=== PATIENT | female | born 1950 | race Caucasian/White ===

== ENCOUNTER → 2017-08-14 08:40 | Outpatient (CLI) | payer MEDICARE, MEDICAID, SELFPAY ==
--- NOTE | 2017-08-14 08:48 | HPBI_ITS ---
MAMMOGRAPHY - BILATERAL SCREENING REASON FOR EXAM: Female, 66 years old. Routine annual screening examination. PERTINENT HISTORY: Non-contributory. TECHNIQUE: Digital bilateral breast arianna (3D mammographic acquisition) in the CC and MLO projections. 2-D mediolateral oblique (MLO) and craniocaudad (CC) views of both breasts were obtained. CAD: Full Field Digital Mammography with Computer Added Detection was performed. COMPARISON: None. Baseline examination. FINDINGS: Breast Composition: There are scattered areas of fibroglandular density. There are no dominant masses or suspicious calcifications. There are 2 adjacent calcified nodules in the superior medial retroareolar region of the right breast. They measure 8 mm each. No other significant abnormalities are identified. HPBI/SCREENING MAMM (CAD), BILAT IMPRESSION: Negative screening mammogram. Yearly followup mammogram recommended. (A) ASSESSMENT CATEGORY: BIRADS Category 2: Benign. A letter regarding these results will be sent to the patient by the facility within 30 days. Approximately 10% of breast cancers are not detected by mammography. A normal mammogram should not delay biopsy of a clinically suspicious abnormality. [id number] Electronically Signed: Anoop aSmayoa MD at 10:38 EDT Tel [phone], Service support ,
== END ==
PROVIDERS: Family Provider Family Medicine; PCP Family Medicine; Visit Provider Family Medicine
DX: Z12.31 Encounter for screening mammogram for malignant neoplasm of breast (principal)
CPT/HCPCS: 77063; 77067

== ENCOUNTER → 2017-09-28 14:38 | Outpatient (CLI) | payer MEDICARE, MEDICAID, SELFPAY ==
--- NOTE | 2017-09-28 15:05 | RAD_ITS ---
STUDY: X-RAY - PELVIS AND BILATERAL HIPS REASON FOR EXAM: Female, 67 years old. right leg weakness, left hip pain TECHNIQUE: Radiological exam, hip, bilateral, with pelvis when performed; minimum of 5 views COMPARISON: None. FINDINGS: There is a non-specific bowel gas pattern. Normal visualized soft tissue structures. There is narrowing with cortical sclerosis and osteophyte formation of the sacroiliac joint consistent with degenerative osteoarthritic changes. Normal bilateral superior and inferior pubic rami. Normal pubic symphysis. Normal bilateral ischial tuberosities. There are osteoarthritic changes of the right femoral head with marginal osteophyte formation. There is osteoarthritic spur formation of the right acetabular rim. Normal right hip joint. There are osteoarthritic changes of the left femoral head with marginal osteophyte formation. There is osteoarthritic spur formation of the left acetabular rim. Normal left hip joint. 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 Electronically Signed: Tammie Alvarado MD at 13:41 EDT Tel , Service support ,
[2017-09-28 18:27] LABS: Absolute Lymphocyte Count 2.03 X10^3/ul (0.83-4.51); Absolute Neutrophil Count 3.3 X10^3/uL (2.0-7.7); Basophil# 0.02 X10^3/uL; Basophil% 0.3 % (0-1); Eosinophil# 0.23 X10^3/uL; Eosinophils% 3.7 % (0-5); Hematocrit 40.2 % (37-47); Hemoglobin 12.7 g/dl (12.0-15.0); Lymphocyte # 2.03 X10^3/ul (4.0); Lymphocyte % 32.8 % (19-41); Mean Corp Hgb Conc 31.6 g/gl (32-36); Mean Corpuscular Hgb 28.7 pg (27.0-32.0); Mean Corpuscular Volume 90.7 fL (81-99); Monocyte% 9.7 % (0-10); Neutrophil # 3.29 X10^3/uL (2.7-7.7); Neutrophil % 53.3 % (47-70); Platelet Count 296 K/mm3 (150-450); RBC Distribution Width CV 14.3 % (11.6-14.6); RBC Distribution Width SD 47.2 fl (35.1-43.9); Red Blood Count 4.43 M/mm3 (4.2-5.4); White Blood Count 6.2 K/mm3 (4.4-11.0)
[2017-09-28 18:34] LABS: POSITIVE COUNT NO; POSITIVE DIFFERENTIAL NO; POSITIVE MORPHOLOGY NO
[2017-09-28 18:54] LABS: ALB/GLOB Ratio 0.9 RATIO (0.9-2.4); AST(SGOT) 21 U/L (15-37); Alanine Aminotransfer ALT/SGPT 32 U/L (13-56); Albumin, Serum 3.7 g/dL (3.2-5.0); Alkaline Phosphatase 60 U/L (45-117); Anion Gap 7 (5-15); BUN 18 mg/dL (7-18); BUN/Creat Ratio 19.4 RATIO (10-20); Calcium,Total 9.2 mg/dL (8.5-10.1); Chloride 105 mmol/L (98-107); Creatinine, Serum 0.93 mg/dL (0.55-1.02); EST Glomerular Filtration Rate 64 mL/min (>60); Est Glom Filt Rate - Afr Amer 78 mL/min (>60); Globulin 4.1 g/dL (2.2-4.2); Glucose 97 mg/dL (74-106); Potassium 4.1 mmol/L (3.5-5.1); Protein, Total 7.8 g/dL (6.4-8.2); Sodium Level 138 mmol/L (136-145)
[2017-09-28 19:55] LABS: Hemoglobin A1c 6.7 % (4.2-6.3)
[2017-09-29 09:26] LABS: CRP < 2.90 mg/L (0.0-3.0)
[2017-10-01 14:03] LABS: ANTINUCLEAR ANTIBODIES DIRECT Positive (Negative)
[2017-10-05 16:09] LABS: Anti-Centromere B Ab <0.2 AI (0.0-0.9); Anti-Chromatin <0.2 AI (0.0-0.9); Anti-Jo <0.2 AI (0.0-0.9); Anti-Scleroderma-70 AB <0.2 AI (0.0-0.9); RNP Ab 1.4 AI (0.0-0.9); SJOGREN'S Anti-SS-A test < 0.2 AI (0.0-0.9); SJOGREN'S Anti-SS-B test < 0.2 AI (0.0-0.9); Smith Ab <0.2 AI (0.0-0.9)
[2017-10-06 11:27] LABS: Anti-dsDNA Ab 6 IU/mL (0-9)
== END ==
PROVIDERS: Family Provider Family Medicine; PCP Family Medicine; Visit Provider Family Medicine
DX: E11.9 Type 2 diabetes mellitus without complications (principal); R29.898 Other symptoms and signs involving the musculoskeletal system
CPT/HCPCS: 36415; 73521; 80053; 83036; 85025; 86038; 86140; 86225; 86235

== ENCOUNTER → 2017-10-27 09:36 | Outpatient (CLI) | payer MEDICARE, MEDICAID, SELFPAY ==
[2017-10-28 13:45] LABS: ANTINUCLEAR ANTIBODIES DIRECT Positive (Negative)
== END ==
PROVIDERS: Family Provider Family Medicine; PCP Family Medicine; Visit Provider Family Medicine
DX: M25.50 Pain in unspecified joint (principal)
CPT/HCPCS: 36415; 86038

== ENCOUNTER 2017-10-30 13:30 | Outpatient (RCR) | payer MEDICARE, MEDICAID, SELFPAY ==
--- NOTE | 2017-09-29 14:48 | HP.PTEVAL_ITS ---
Patient's Visit Information MICHELLE MCGEE is a 67 year old F referred to Physical Therapy by Joseph Armstrong with a diagnosis of R LE weakness, spondylolisthesis. Date of Evaluation: 09/29/17 Physical Therapist: Blossom Sky - Visit Plan Frequency: 2x /Week Duration: 6 Weeks Plan: 2X/ week for 5 weeks for foam rolling, B IT band, HS, gastroc and piriformis stretching, strengthening and core stability with HEP and modalitles if needed. - Subjective Subjective: Pt thinks that the the DR thinks the problems is her hips. He was poking the sides of her hips and it hurt big time. Dr said that she has good ROM. Last Thursday was mowing and her legs gave out. She also fell again today while trying to pull a stump out of the ground and hafsa everything including her head. She does not think she is hurt but maybe her L ankle and her back hurt for a little bit. Pt has some upper R thigh numbness but Dr does not think that it is related to why her legs gave out. She has some increase pain all over. She report that her hips hurt a little bit and hard to stand up first thing in the morning. She does not go up stairs all the time but when she does do steps she practically crawls up them. Pt had x-rays of her hips done and he also did some blood work. Pt has a hx of spondylolisthesis in her spine but does not remember when she was diagnosed with it. In general she feels weak when standing up on her legs. Pt would prefer to not do pool therapy as she has done that in the past. She reports that she has trouble getting out of low chairs. - Pain R hip pain Pain Intensity (Out of 10): 0 L hip pain Pain Intensity (Out of 10): 3 Back pain Pain Intensity (Out of 10): 5 - Objective Gait: short stride and WBOS. Tight B HS, Piriformis, gastroc. R hip IR 29 degrees and L hip IR 35 degrees. R hip ER 30 degrees and L hip ER 29 degrees. LE MMT: hip abd R 4-/5 and L 4/5, B hip flex 4-/5, B knee flex 4/5, B knee ext 4-/5. Pt is able to heel and toe raise with UE support. Able to 3/5 normal ROM bridge. Trunk AROM: flex 75%, ext 50%, SB B 50%. Palpation: tender over B hip troch and IT band - Goals Goal 1:: I Hep Goal Time Frame: 4-6 Weeks Goal 2:: decrease B hip pain to 2/10 with ADL's Goal Time Frame: 4-6 Weeks Goal 3:: Increase B hip strength by 1/2 muscle grade (LE MMT: hip abd R 4-/5 and L 4/5, B hip flex 4-/5, B knee flex 4/5, B knee ext 4-/5. Pt is able to heel and toe raise with UE support. Able to 3/5 normal ROM bridge) Goal Time Frame: 4-6 Weeks Goal 4:: Increase flexability in B hip HS, gastroc, IT band and pififomris Goal Time Frame: 4-6 Weeks - Rehabilitation Potential Rehabilitation Potential: Good - Anticipated Interventions Patient/Client Instruction: Educate patient on: Condition, Plan of Care For the Purpose of:: To decrease pain, To decrease swelling/inflammation, To increase ROM, To improve nutrient delivery to tissue, To improve muscle performance and motor function, To improve ability to perform ADL's, To increase tolerance to activity/condition/position, To improve performance and independence with ADL's, To improve gait and locomotor functions, To improve health of tissue, To decrease soft tissue restriction, To increase flexibility/ ROM Therapeutic Exercise to Include: Strength training, Flexibilty training, Gait and locomotor training, Passive ROM, Dynamic Lumbar Stabilization For the Purpose of:: To decrease pain, To increase ROM, To improve nutrient delivery to tissue, To improve muscle performance and motor function, To improve ability to perform ADL's, To increase tolerance to activity/condition/ position, To improve gait and locomotor functions, To improve health of tissue, To decrease soft tissue restriction, To increase flexibility/ROM Manual Therapy Techniques to Include: Passive ROM, Soft tissue mobilization For the Purpose of:: To decrease pain, To increase ROM, To improve nutrient delivery to tissue, To improve health of tissue, To decrease soft tissue restriction Cryotherapy (ice pack, ice massage): Yes Thermo therapy (hot pack): Yes Ultrasound (thermal/non thermal): Yes For the Purpose of:: To decrease pain, To decrease swelling/inflammation, To increase ROM, To improve nutrient delivery to tissue Thank you for the opportunity to evaluate your patient. For Medicare and Medicare HMO plans, please review the plan of care and approve it. It will need to be FAXED BACK to us at [phone] for Medicare purposes. Please let me know if there are questions or concerns regarding this plan of care. Physician Signature: Date:
--- NOTE | 2017-10-27 14:59 | HP.PTDCSUM_ITS ---
HP - PT D/C Summary It has been my pleasure to treat MICHELLE MCGEE under orders from Joseph Armstrong, for the diagnosis of R LE weakness, spondylolisthesis for a total of 8 visit(s) . Discharge Date: Please see the following information for a summary of their discharge status. - Subjective Subjective: Pt reports that she is having some pain in the back of her legs today. Pt believes that she is getting better. - Pain R hip pain Pain Intensity (Out of 10): 3 L hip pain Pain Intensity (Out of 10): 3 Back pain Pain Intensity (Out of 10): 0 - Objective Objective/Function: Pt worked hard today. no complaints with any of the exercises. - Goals Goal 1:: I Hep Goal 2:: decrease B hip pain to 2/10 with ADL's Goal 3:: Increase B hip strength by 1/2 muscle grade (LE MMT: hip abd R 4-/5 and L 4/5, B hip flex 4-/5, B knee flex 4/5, B knee ext 4-/5. Pt is able to heel and toe raise with UE support. Able to 3/5 normal ROM bridge) Goal 4:: Increase flexability in B hip HS, gastroc, IT band and pififomris - Plan Plan: 2X/ week for 5 weeks for foam rolling, B IT band, HS, gastroc and piriformis stretching, strengthening and core stability with HEP and modalitles if needed. - D/C Information If there are questions or concerns regarding this patient's physical therapy, please feel free to call me at [phone]. Thank you for the referral of this patient. Sincerely, Blossom Sky
--- NOTE | 2017-10-30 13:54 | HP.PTDCSUM_ITS ---
HP - PT D/C Summary It has been my pleasure to treat MICHELLE MCGEE under orders from Joseph Armstrong, for the diagnosis of R LE weakness, spondylolisthesis for a total of 9 visit(s) . Discharge Date: 10/30/17 Please see the following information for a summary of their discharge status. - Subjective Subjective: Pt reports that she is doing well. Right now she has no back pain. Pt saw the Dr yesterday and she admitted that she was mowing her yard and neighbors yard and said she was doing too much. Pt really over did it that day and her back really hurt. Pt feels that she has gotten stronger. Pt is doing her exercises at home. Dr thinks that her current issues are related to a conective tissue disease and she is going to get another specialist opinion next. - Pain R hip pain Pain Intensity (Out of 10): 0 L hip pain Pain Intensity (Out of 10): 0 Back pain Pain Intensity (Out of 10): 0 - Overall Improvement % Improvement: 80 - Objective Objective/Function: LE MMT: hip abd R 4/5 and L 4/5, B hip flex 4/5, B knee flex 4/5, B knee ext 4/5. Improved gastroc, HS flexability. Improved Piriformis flexability as well but still needs a little more stretching which she will continue to do at home. - Goals Goal 1:: I Hep Goal Progress: Goal Met Goal 2:: decrease B hip pain to 2/10 with ADL's Goal Progress: Goal Met Goal 3:: Increase B hip strength by 1/2 muscle grade (LE MMT: hip abd R 4/5 and L 4/5, B hip flex 4/5, B knee flex 4/5, B knee ext 4/5. Goal 4:: Increase flexability in B hip HS, gastroc, IT band and pififomris Goal Progress: Goal Met - Plan Plan: DC PT to HEP - D/C Information Discharge Comments: DC PT to HEP If there are questions or concerns regarding this patient's physical therapy, please feel free to call me at [phone]. Thank you for the referral of this patient. Sincerely, Blossom Sky
== END 2017-10-30 15:17 | disposition home or self-care (01) ==
LOC: PT 13:30
PROVIDERS: Family Provider Family Medicine; PCP Family Medicine; Visit Provider Family Medicine
DX: G57.11 Meralgia paresthetica, right lower limb (principal); M43.10 Spondylolisthesis, site unspecified; R29.898 Other symptoms and signs involving the musculoskeletal system
CPT/HCPCS: 36415; 86038; 97110; 97162; 97530

== ENCOUNTER → 2018-01-28 14:20 | Outpatient (CLI) | payer MEDICARE, MEDICAID, SELFPAY ==
[2018-01-28 15:36] LABS: Absolute Lymphocyte Count 0.89 X10^3/ul (0.83-4.51); Absolute Neutrophil Count 7.2 X10^3/uL (2.0-7.7); Basophil# 0.01 X10^3/uL; Basophil% 0.1 % (0-1); Eosinophil# 0.01 X10^3/uL; Eosinophils% 0.1 % (0-5); Hematocrit 40.9 % (37-47); Hemoglobin 13.1 g/dl (12.0-15.0); Lymphocyte # 0.89 X10^3/ul (4.0); Lymphocyte % 10.6 % (19-41); Mean Corpuscular Volume 90.7 fL (81-99); Mean Platelet Vol. 10.3 fl (6.2-12.0); Monocyte# 0.28 X10^3/uL; Monocyte% 3.3 % (0-10); Neutrophil % 85.5 % (47-70); Platelet Count 297 K/mm3 (150-450); RBC Distribution Width CV 14.3 % (11.6-14.6); RBC Distribution Width SD 46.7 fl (35.1-43.9); Red Blood Count 4.51 M/mm3 (4.2-5.4); White Blood Count 8.4 K/mm3 (4.4-11.0)
[2018-01-28 15:43] LABS: POSITIVE COUNT NO; POSITIVE DIFFERENTIAL NO; POSITIVE MORPHOLOGY NO
[2018-01-28 15:53] LABS: Hemoglobin A1c 6.4 % (4.2-6.3)
[2018-01-28 15:59] LABS: ALB/GLOB Ratio 0.9 RATIO (0.9-2.4); AST(SGOT) 31 U/L (15-37); Alanine Aminotransfer ALT/SGPT 47 U/L (13-56); Albumin, Serum 3.7 g/dL (3.2-5.0); Alkaline Phosphatase 58 U/L (45-117); Anion Gap 7 (5-15); BUN 20 mg/dL (7-18); BUN/Creat Ratio 20.4 RATIO (10-20); Calcium,Total 9.2 mg/dL (8.5-10.1); Chloride 100 mmol/L (98-107); Creatinine, Serum 0.98 mg/dL (0.55-1.02); EST Glomerular Filtration Rate 60 mL/min (>60); Est Glom Filt Rate - Afr Amer 73 mL/min (>60); Globulin 4.3 g/dL (2.2-4.2); Glucose 197 mg/dL (74-106); Potassium 4.8 mmol/L (3.5-5.1); Sodium Level 135 mmol/L (136-145); Thyroid Stim Hormone (TSH) 1.37 uIU/mL (0.358-3.74)
== END ==
PROVIDERS: Family Provider Family Medicine; PCP Family Medicine; Visit Provider Family Medicine
DX: E11.9 Type 2 diabetes mellitus without complications (principal); M79.7 Fibromyalgia
CPT/HCPCS: 36415; 80053; 83036; 84443; 85025

== ENCOUNTER → 2018-04-28 11:05 | Outpatient (CLI) | payer MEDICARE, SELFPAY ==
--- NOTE | 2018-04-28 11:09 | RAD_ITS ---
STUDY: X-RAY - CERVICAL SPINE REASON FOR EXAM: Female, 67 years old. Numbness in left arm TECHNIQUE: 5 view(s) of the cervical spine were obtained. COMPARISON: None FINDINGS: There are degenerative changes of the anterior atlantoaxial articulation. Normal odontoid process. Normal cervical lordosis. There is multi-level endplate spondylosis. There is multi-level degenerative disc disease with multilevel disc space narrowing. There is multi-level osseous foraminal stenosis. Grade 1 anterolisthesis C4 on C5. Multilevel facet arthropathy. The soft tissue structures are unremarkable. RAD/Cerv Spine 4 or 5 Views IMPRESSION: Multilevel degenerative changes involving the disc spaces, facet joints with bilateral neural foraminal narrowing. Grade 1 anterolisthesis C4 on C5 likely secondary to arthropathy. Electronically Signed: Chary Durbin MD at 7:06 EST , Service support ,
--- OUTSIDE RECORDS SUMMARY | 2018-06-23 19:37 | XMS RPT_ITS ---
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 (1) Observed: 10/30/2017 Status: F Source: [place] 2:06 PM [facility] REPOSITORY [facility] [address] [place] [address] Fax REHABILITATION SERVICES DISCHARGE SUMMARY MR#: [id number] Acct: [id number] Name: CHANTAL MCGEE Rep #: [id number] : 1950 67 From: Blossom Sky MPT Referring Dr.: Kevin Armstrong MD Status: REG RCR Insurance: MEDICARE PART A B MEDICAID HP - PT D/C Summary It has been my pleasure to treat CHANTAL MCGEE under orders from Kevin Armstrong, for the diagnosis of R LE weakness, spondylolisthesis for a total of 9 visit(s). Discharge Date: 10/30/17 Please see the following information for a summary of their discharge status. - Subjective Subjective: Pt reports that she is doing well. Right now she has no back pain. Pt saw the Dr yesterday and she admitted that she was mowing her yard and neighbors yard and said she was doing too much. Pt really over did it that day and her back really hurt. Pt feels that she has gotten stronger. Pt is doing her exercises at home. Dr thinks that her current issues are related to a conective tissue disease and she is going to get another specialist opinion next. - Pain R hip pain Pain Intensity (Out of 10): 0 L hip pain Pain Intensity (Out of 10): 0 Back pain Pain Intensity (Out of 10): 0 - Overall Improvement % Improvement: 80 - Objective Objective/Function: LE MMT: hip abd R 4/5 and L 4/5, B hip flex 4/5, B knee flex 4/5, B knee ext 4/5. Improved gastroc, HS flexability. Improved Piriformis flexability as well but still needs a little more stretching which she will continue to do at home. - Goals Goal 1:: I Hep Goal Progress: Goal Met Goal 2:: decrease B hip pain to 2/10 with ADL's Goal Progress: Goal Met Goal 3:: Increase B hip strength by 1/2 muscle grade (LE MMT: hip abd R 4/5 and L 4/5, B hip flex 4/5, B knee flex 4/5, B knee ext 4/5. Goal 4:: Increase flexability in B hip HS, gastroc, IT band and pififomris Goal Progress: Goal Met - Plan Plan: DC PT to HEP - D/C Information Discharge Comments: DC PT to HEP If there are questions or concerns regarding this patient's physical therapy, please feel free to call me at [phone]. Thank you for the referral of this patient. Sincerely, Blossom Sky <Electronically signed by Blossom Sky MPT> 10/30/17 1406 CC: Kevin Armstrong MD Signed ANTINUCLEAR ANTIBODIES Collected: 10/27/2017 Status: F Source: [place] DIRECT 9:38 AM [facility] REPOSITORY TYPE CODE TESTS RESULT OUT OF REFERENCE UNITS RANGE LAB L3100.5475 Negative High Positive COLLIN-DIRECT Result Comment: Performed at: - [facility] [address] [id number] Supervisor Border Department: Umesh Serrano PhD, Phone: [phone] Performed By: #### L3100.5475 #### [facility] (refer to report for specific site) refer to report for address and phone number INITAL EVALUATION (1) Observed: 09/30/2017 Status: F Source: L[place] - PT 7:03 PM [facility] REPOSITORY [facility] [address] [place], [place] [address] Fax REHABILITATION SERVICES INITIAL EVALUATION MR#: [id number] Acct: [id number] Name: CHANTAL MCGEE Rep #: [id number] : 1950 67 From: Blossom Sky MPT Referring Dr.: Kevin Armstrong MD Status: REG RCR Insurance: MEDICARE PART A B MEDICAID Patient's Visit Information CHANTAL MCGEE is a 67 year old F referred to Physical Therapy by Kevin Armstrong with a diagnosis of R LE weakness, spondylolisthesis. Date of Evaluation: 09/29/17 Physical Therapist: Blossom Sky - Visit Plan Frequency: 2x /Week Duration: 6 Weeks Plan: 2X/ week for 5 weeks for foam rolling, B IT band, HS, gastroc and piriformis stretching, strengthening and core stability with HEP and modalitles if needed. - Subjective Subjective: Pt thinks that the the DR thinks the problems is her hips. He was poking the sides of her hips and it hurt big time. Dr said that she has good ROM. Last Thursday was mowing and her legs gave out. She also fell again today while trying to pull a stump out of the ground and hafsa everything including her head. She does not think she is hurt but maybe her L ankle and her back hurt for a little bit. Pt has some upper R thigh numbness but Dr does not think that it is related to why her legs gave out. She has some increase pain all over. She report that her hips hurt a little bit and hard to stand up first thing in the morning. She does not go up stairs all the time but when she does do steps she practically crawls up them. Pt had x-rays of her hips done and he also did some blood work. Pt has a hx of spondylolisthesis in her spine but does not remember when she was diagnosed with it. In general she feels weak when standing up on her legs. Pt would prefer to not do pool therapy as she has done that in the past. She reports that she has trouble getting out of low chairs. - Pain R hip pain Pain Intensity (Out of 10): 0 L hip pain Pain Intensity (Out of 10): 3 Back pain Pain Intensity (Out of 10): 5 - Objective Gait: short stride and WBOS. Tight B HS, Piriformis, gastroc. R hip IR 29 degrees and L hip IR 35 degrees. R hip ER 30 degrees and L hip ER 29 degrees. LE MMT: hip abd R 4-/5 and L 4/5, B hip flex 4-/5, B knee flex 4/5, B knee ext 4-/5. Pt is able to heel and toe raise with UE support. Able to 3/5 normal ROM bridge. Trunk AROM: flex 75%, ext 50%, SB B 50%. Palpation: tender over B hip troch and IT band - Goals Goal 1:: I Hep Goal Time Frame: 4-6 Weeks Goal 2:: decrease B hip pain to 2/10 with ADL's Goal Time Frame: 4-6 Weeks Goal 3:: Increase B hip strength by 1/2 muscle grade (LE MMT: hip abd R 4-/5 and L 4/5, B hip flex 4-/5, B knee flex 4/5, B knee ext 4-/5. Pt is able to heel and toe raise with UE support. Able to 3/5 normal ROM bridge) Goal Time Frame: 4-6 Weeks Goal 4:: Increase flexability in B hip HS, gastroc, IT band and pififomris Goal Time Frame: 4-6 Weeks - Rehabilitation Potential Rehabilitation Potential: Good - Anticipated Interventions Patient/Client Instruction: Educate patient on: Condition, Plan of Care For the Purpose of:: To decrease pain, To decrease swelling/inflammation, To increase ROM, To improve nutrient delivery to tissue, To improve muscle performance and motor function, To improve ability to perform ADL's, To increase tolerance to activity/condition/position, To improve performance and independence with ADL's, To improve gait and locomotor functions, To improve health of tissue, To decrease soft tissue restriction, To increase flexibility/ROM Therapeutic Exercise to Include: Strength training, Flexibilty training, Gait and locomotor training, Passive ROM, Dynamic Lumbar Stabilization For the Purpose of:: To decrease pain, To increase ROM, To improve nutrient delivery to tissue, To improve muscle performance and motor function, To improve ability to perform ADL's, To increase tolerance to activity/condition/position, To improve gait and locomotor functions, To improve health of tissue, To decrease soft tissue restriction, To increase flexibility/ROM Manual Therapy Techniques to Include: Passive ROM, Soft tissue mobilization For the Purpose of:: To decrease pain, To increase ROM, To improve nutrient delivery to tissue, To improve health of tissue, To decrease soft tissue restriction Cryotherapy (ice pack, ice massage): Yes Thermo therapy (hot pack): Yes Ultrasound (thermal/non thermal): Yes For the Purpose of:: To decrease pain, To decrease swelling/inflammation, To increase ROM, To improve nutrient delivery to tissue Thank you for the opportunity to evaluate your patient. For Medicare and Medicare HMO plans, please review the plan of care and approve it. It will need to be FAXED BACK to us at [phone] for Medicare purposes. Please let me know if there are questions or concerns regarding this plan of care. Physician Signature: Date: <Electronically signed by Blossom Sky MPT> 09/30/17 1903 CC: Kevin Armstrong MD Signed For Medicare only, by signing this I certify the plan of care. Physicians Signature Date HIPS B/L MIN 2 Observed: 09/28/2017 Status: F Source: [place] VIEWS W/ PELVIS 3:08 PM [facility] REPOSITORY [facility] Imaging Services [address] [place] [address] Hips B/L min 2 views w/ Pelvis MR#: [id number] Acct: [id number] Name: CHANTAL MCGEE Rep #: [id number] : 1950 F 67 From: Tammie Alvarado MD PCP: Kevin Armstrong MD Status: REG CLI Study: Hips B/L min 2 views w/ Pelvis Date of Exam: 09/28/17 Exam# [id number] Ordering Dr: Kevin Armstrong MD STUDY: X-RAY - PELVIS AND BILATERAL HIPS REASON FOR EXAM: Female, 67 years old. right leg weakness, left hip pain TECHNIQUE: Radiological exam, hip, bilateral, with pelvis when performed; minimum of 5 views COMPARISON: None. FINDINGS: There is a non-specific bowel gas pattern. Normal visualized soft tissue structures. There is narrowing with cortical sclerosis and osteophyte formation of the sacroiliac joint consistent with degenerative osteoarthritic changes. Normal bilateral superior and inferior pubic rami. Normal pubic symphysis. Normal bilateral ischial tuberosities. There are osteoarthritic changes of the right femoral head with marginal osteophyte formation. There is osteoarthritic spur formation of the right acetabular rim. Normal right hip joint. There are osteoarthritic changes of the left femoral head with marginal osteophyte formation. There is osteoarthritic spur formation of the left acetabular rim. Normal left hip joint. 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 Electronically Signed: Tammie Alvarado MD at 13:41 EDT Tel , Service support , CC: Kevin Armstrong MD [employer] Route Driver: Signed CBC W/DIFF, AUTOMATED Collected: 09/28/2017 Status: F Source: [place] 2:41 PM [facility] REPOSITORY Order Comment: Order Date: 09/28/17 Order Info: 0184-1 - CBCD TYPE CODE TESTS RESULT OUT OF RANGE REFERENCE UNITS LAB L100.1000 4.4-11.0 K/mm3 Normal WBC 6.2 LAB L100.1200 4.2-5.4 M/mm3 Normal RBC 4.43 LAB L100.1300 12.0-15.0 g/dl Normal HGB 12.7 LAB L100.1400 37-47 % Normal HCT 40.2 LAB L100.1500 81-99 fL Normal MCV 90.7 LAB L100.1600 27.0-32.0 pg Normal MCH 28.7 LAB L100.1700 32-36 g/gl Low MCHC 31.6 LAB L100.1810 11.6-14.6 % Normal RDW CV 14.3 LAB L100.1820 35.1-43.9 fl High RDW SD 47.2 LAB L100.1900 150-450 K/mm3 Normal PLT 296 LAB L100.2000 6.2-12.0 fl Normal MPV 10.0 LAB L100.2100 47-70 % Normal NEUT% 53.3 LAB L100.2200 19-41 % Normal LY% 32.8 LAB L100.2300 0-10 % Normal MONO% 9.7 LAB L100.2400 0-5 % Normal EO% 3.7 LAB L100.2500 0-1 % Normal BASO% 0.3 LAB L100.2550 0.0-0.9 % Normal IM GRAN % 0.200 Result Comment: IG% - Immature Granulocytes (promyelocytes, myelocytes and metamyelocytes) > 1% indicates that a LEFT SHIFT is Present. LAB L100.2620 2.0-7.7 X10 3/uL Normal Absolute Neut 3.3 LAB L100.2720 0.83-4.51 X10 3/ul Normal Absolute Lymph 2.03 Performed By: #### L100.0100, L500.4050, L501.9985 #### [facility] [address] [place], [place], [address] COMPREHENSIVE METABOLIC Collected: 09/28/2017 Status: F Source: [facility] 2:41 PM [facility] REPOSITORY Order Comment: PLEASE ADD CRP TO BLOOD FROM YESTERDAY 09-28-17 Order Date: 09/28/17 Order Info: 0786-1 - CMP TYPE CODE TESTS RESULT OUT OF RANGE REFERENCE UNITS LAB L501.0100 74-106 mg/dL Normal GLU 97 Result Comment: Please note revised GLUCOSE reference range effective 2017. LAB L501.1000 7-18 mg/dL Normal BUN 18 LAB L501.1100 0.55-1.02 mg/dL Normal CREAT,SERUM 0.93 Result Comment: The validity of the calculated GFR AND GFRAA in patients over 70 years has not been determined. Clinical correlation is essential. LAB L501.1110 >60 mL/min Normal EST GFR 64 Result Comment: Non- GFR Calc LAB L501.1115 >60 mL/min Normal EST GFR - AA 78 Result Comment: GFR Calc LAB L501.1300 10-20 RATIO Normal BUN/CRE 19.4 LAB L501.1500 6.4-8.2 g/dL T Normal PROT 7.8 LAB L501.1800 3.2-5.0 g/dL Normal ALB 3.7 LAB L501.1950 2.2-4.2 g/dL Normal GLOB 4.1 LAB L501.2000 0.9-2.4 RATIO Normal A/G 0.9 LAB L501.2200 8.5-10.1 mg/dL CA Normal 9.2 LAB L501.4100 15-37 U/L Normal AST 21 LAB L501.4305 45-117 U/L Normal ALK P 60 LAB L501.4405 13-56 U/L Normal ALT 32 LAB L501.4600 0.20-1.00 mg/dL T Normal BILI 0.20 LAB L501.5300 136-145 mmol/L NA Normal 138 LAB L501.5600 3.5-5.1 mmol/L K Normal 4.1 LAB L501.5900 98-107 mmol/L CL Normal 105 LAB L501.6100 21.0-32.0 mmol/L Normal CO2 26.0 LAB L501.6200 5-15 Normal GAP 7 Performed By: #### L100.0100, L500.4050, L501.9985 #### [facility] [address] [place], [place], [id number] HEMOGLOBIN A1C Collected: 09/28/2017 Status: F Source: [place] 2:41 PM [facility] REPOSITORY Order Comment: Order Date: 09/28/17 Order Info: 4548-4 - A1C TYPE CODE TESTS RESULT OUT OF RANGE REFERENCE UNITS LAB L501.9985 4.2-6.3 % High HGB A1C 6.7 Performed By: #### L100.0100, L500.4050, L501.9985 #### [facility] [address] [facility] [place], [place], [address] CRP Collected: 09/28/2017 Status: F Source: [place] 2:41 PM [facility] REPOSITORY Order Comment: PLEASE ADD CRP TO BLOOD FROM YESTERDAY 09-28-17 Order Date: 09/28/17 Order Info: 0786-1 - CMP TYPE CODE TESTS RESULT OUT OF RANGE REFERENCE UNITS LAB L501.6710 0.0-3.0 mg/L Normal < 2.90 C-REACTIVE PROT Result Comment: C-Reactive Protein (CRP) provides useful information for the diagnosis, therapy and monitoring of inflammatory processes and associated diseases. For the evaluation of Relative Risk for Cardiovascular Disease, a High Sensitivity CRP (HSCRP) should be ordered. Performed By: #### L501.6710 #### [facility] [address] [place], [place], [address] ANTINUCLEAR ANTIBODIES Collected: 09/28/2017 Status: F Source: [place] DIRECT 2:41 PM [facility] REPOSITORY Order Comment: COMPREHENSIVE PROFILE ADD ON PER Order Date: 09/28/17 Order Info: 0270-1 - COLLIN TYPE CODE TESTS RESULT OUT OF REFERENCE UNITS RANGE LAB L3100.5475 Negative High Positive COLLIN-DIRECT Result Comment: Performed at: [facility] [place] [id number] Supervisor Border Department: Umesh Serrano PhD, Phone: [phone] Performed By: #### L3100.5475 #### [facility]er [facility] for specific [facility] refer to report for address and phone number COLLIN COMPREHENSIVE PANEL Collected: 09/28/2017 Status: F Source: [place] 2:41 PM [facility] REPOSITORY Order Comment: COMPREHENSIVE PROFILE ADD ON PER Order Date: 09/28/17 Order Info: 0270-1 - COLLIN TYPE CODE TESTS RESULT OUT OF RANGE REFERENCE UNITS LAB L3100.5500 0-9 IU/mL Normal dsDNA AB 6 Result Comment: Negative <5 Equivocal 5 - 9 Positive >9 LAB L3100.9200 0.0-0.9 AI Anti-SS-A Normal < 0.2 LAB L3100.9300 0.0-0.9 AI Anti-SS-B Normal < 0.2 LAB L3410.0427 0.0-0.9 AI ANTICHROMATIN Normal <0.2 LAB L3410.0500 0.0-0.9 AI ANTI-SOL Normal <0.2 LAB L3410.0700 0.0-0.9 AI ANTISCLER Normal <0.2 LAB L3410.1200 0.0-0.9 AI WATER SYSTEM OPERATOR Ab High 1.4 LAB L3410.1300 0.0-0.9 AI ARMSTRONG Ab Normal <0.2 LAB L3410.4010 0.0-0.9 AI ANTI-CENT B Normal <0.2 LAB L3410.4150 . COMMENT Normal Comment Result Comment: Autoantibody Disease Association Condition Frequency --------- Antinuclear Antibody, SLE, mixed connective Direct (COLLIN-D) tissue diseases --------- dsDNA SLE 40 - 60% --------- Chromatin Drug induced SLE 90% SLE 48 - 97% --------- SSA (Ro) SLE 25 - 35% Sjogren's Syndrome 40 - 70% Lupus 100% --------- SSB (La) SLE 10% Sjogren's Syndrome 30% --------- Sm (anti-Armstrong) SLE 15 - 30% --------- WATER SYSTEM OPERATOR Mixed Connective Tissue Disease 95% (U1 nRNP, SLE 30 - 50% anti-ribonucleoprotein) Polymyositis and/or Dermatomyositis 20% --------- Scl-70 (antiDNA Scleroderma (diffuse) 20 - 35% topoisomerase) Crest 13% --------- Sol-1 Polymyositis and/or Dermatomyositis 20 - 40% --------- Centromere B Scleroderma - Crest variant 80% Performed By: #### L3100.5440 #### [facility] (refer to report for specific site) refer to report for address and phone number SCREENING MAMM (CAD), Observed: 08/14/2017 Status: F Source: [place] ROBBINS 8:48 AM [facility] REPOSITORY [facility] Imaging Services [address] [place] [address] [place] [address] SCREENING MAMM (CAD), BILAT MR#: [id number] Acct: [id number] Name: CHANTAL MCGEE Rep #: [id number] : 1950 F 66 From: Anoop Samayoa MD PCP: Kevin Armstrong MD Status: REG CLI Study: SCREENING MAMM (CAD), BILAT Date of Exam: 08/14/17 Exam# [id number] Ordering Dr: Kevin Armstrong MD MAMMOGRAPHY - BILATERAL SCREENING REASON FOR EXAM: Female, 66 years old. Routine annual screening examination. PERTINENT HISTORY: Non-contributory. TECHNIQUE: Digital bilateral breast arianna (3D mammographic acquisition) in the CC and MLO projections. 2-D mediolateral oblique (MLO) and craniocaudad (CC) views of both breasts were obtained. CAD: Full Field Digital Mammography with Computer Added Detection was performed. COMPARISON: None. Baseline examination. FINDINGS: Breast Composition: There are scattered areas of fibroglandular density. There are no dominant masses or suspicious calcifications. There are 2 adjacent calcified nodules in the superior medial retroareolar region of the right breast. They measure 8 mm each. No other significant abnormalities are identified. HPBI/SCREENING MAMM (CAD), BILAT IMPRESSION: Negative screening mammogram. Yearly followup mammogram recommended. (A) ASSESSMENT CATEGORY: BIRADS Category 2: Benign. A letter regarding these results will be sent to the patient by the facility within 30 days. Approximately 10% of breast cancers are not detected by mammography. A normal mammogram should not delay biopsy of a clinically suspicious abnormality. [id number] Electronically Signed: Anoop Samayoa MD at 10:38 EDT Tel [phone], Service support , CC: Kevin Armstrong MD [employer] Route Driver: Signed COMPREHENSIVE METABOLIC Collected: 06/10/2017 Status: F Source: [place] ALEJO 8:42 AM [facility] REPOSITORY Order Comment: Order Date: 03/11/17 Order Info: 0786-1 - CMP TYPE CODE TESTS RESULT OUT OF RANGE REFERENCE UNITS LAB L501.0100 70-110 mg/dL High GLU 141 Result Comment: Fasting Glucose result greater than or equal to 126 mg/dL suggests DIABETES MELLITUS per A.D.A. criteria. LAB L501.1000 7-18 mg/dL Normal BUN 16 LAB L501.1100 0.55-1.02 mg/dL Normal CREAT,SERUM 0.90 Result Comment: The validity of the calculated GFR AND GFRAA in patients over 70 years has not been determined. Clinical correlation is essential. LAB L501.1110 >60 mL/min Normal EST GFR 67 Result Comment: Non- GFR Calc LAB L501.1115 >60 mL/min Normal EST GFR - AA 81 Result Comment: GFR Calc LAB L501.1300 10-20 RATIO Normal BUN/CRE 17.8 LAB L501.1500 6.4-8.2 g/dL T Normal PROT 7.7 LAB L501.1800 3.4-5.0 g/dL Normal ALB 3.5 Result Comment: Please note revised Albumin AND Globulin reference range effective 2017. LAB L501.1950 2.2-4.2 g/dL Normal GLOB 4.2 LAB L501.2000 0.9-2.4 RATIO Low A/G 0.8 LAB L501.2200 8.5-10.1 mg/dL Normal CA 9.0 LAB L501.4100 15-37 U/L Normal AST 18 LAB L501.4305 45-117 U/L Normal ALK P 65 LAB L501.4405 12-78 U/L Normal ALT 26 LAB L501.4600 0.20-1.00 mg/dL Normal T BILI 0.40 LAB L501.5300 136-145 mmol/L Normal NA 141 LAB L501.5600 3.5-5.1 mmol/L Normal K 4.2 LAB L501.5900 98-107 mmol/L Normal CL 106 LAB L501.6100 21.0-32.0 mmol/L Normal CO2 30.0 LAB L501.6200 5-15 Normal GAP 5 Performed By: #### L500.4050, L501.9985, L502.0250 #### [facility] [place], [address] HEMOGLOBIN A1C Collected: 06/10/2017 Status: F Source: [place] 8:42 AM [facility] REPOSITORY Order Comment: Order Date: 03/11/17 Order Info: 4548-4 - A1C TYPE CODE TESTS RESULT OUT OF RANGE REFERENCE UNITS LAB L501.9985 4.2-6.3 % High HGB A1C 6.5 Performed By: #### L500.4050, L501.9985, L502.0250 #### [facility] [address] [place], [address] MICROALB:CREAT Collected: 06/10/2017 Status: F Source: [place] RATIO,RANDOM UR 8:42 AM [facility] REPOSITORY Order Comment: Order Date: 03/11/17 Order Info: 0779-1 - MIACRE TYPE CODE TESTS RESULT OUT OF RANGE REFERENCE UNITS LAB L501.1200 NO RANGE EST. mg/dL Normal UR CREAT 61.60 LAB L502.0500 NO RANGE EST. mg/L Normal 5.6 MICROALBUMIN ,UR LAB L502.0600 <30 mg/g CRE mg/g CRE Normal 9.2 MALB:CREAT Performed By: #### L500.4050, L501.9985, L502.0250 #### [facility] [address] [place], [address] ALLERGIES ALLERGIES No Allergies Records FoundENCOUNTERS ENCOUNTERS ADMIT/DISCHARGE ACCOUNT ADMITTING ENCOUNTER LOCATION SOURCE NUMBER CLASS 05/18/2018 [id number] [facility] ing:PT Repository 05/11/2018 [id number] [facility] ing:[facility] Repository 05/06/2018 [id number] [facility] ing:OPBD Repository 04/28/2018 [id number] [facility] ing:MTRAD Repository 02/10/2018/02/11/20 [id number] Ambulatory [address] Repository 01/28/2018 [id number] [facility] ing:MFPLAB Repository 10/30/2017/10/31/19 [id number] Ambulatory [place] [address] ing:PT Repository 10/27/2017 [id number] [facility] ing:MFPLAB Repository 09/28/2017 [id number] [facility] ing:MTRAD Repository 08/14/2017 [id number] [facility] ing:BI Repository 06/10/2017 [id number] [facility] ing:MFPLAB Repository PAYERS PAYERS ENCOUNTER GUARANTOR PAYER SUBSCRIBER SOURCE 05/18/2018 CHANTAL D Primary CHANTAL D [place] [id number] Insurance:MYCARE CRSC HEILMANDOB: [facility] RDLOT *IN [facility] [id number] Number: Repository [id number]: 330 [id number] [phone] () Date:[id number] CLAIMS [address] [place] [address]IC: 05/18/2018 Secondary NOT GIVENUNK [place] Insurance:SELF PAY [facility] Number: Effective Repository Date:2018-05-04 05/11/2018 CHANTAL D Primary CHANTAL D [place] [id number] Insurance:MYCARE CRSC HEILMANDOB[facility] *IN [facility] [id number] Number: Repository [id number]: 330 [id number] [phone] () Date:[id number] CLAIMS [address] [place] [address]JU: 05/11/2018 Secondary NOT GIVENUNK [place] Insurance:SELF PAY [facility] Number: Effective Repository Date:2018-05-05 05/06/2018 CHANTAL D Primary CHANTAL D [place] [id number] Insurance:MYCARE CRSC HEILMANDOB: [facility] [place] *IN [facility] [id number] Number: Repository [id number]: 330 [id number] [phone] (HP) Date:[id number] CLAIMS [address], [place] [address]LJ: 05/06/2018 Secondary NOT GIVENUNK [place] Insurance:SELF PAY [facility] Number: Effective Repository Date:2018-04-30 04/28/2018 CHANTAL D Primary CHANTAL D [place] [id number] Insurance:[facility] HEILMANDOB: [facility] *IN [facility] [id number] Number: Repository [id number]: 330 [id number] [phone] () Date:[id number] CLAIMS [address], [place] [address]GU: 04/28/2018 Secondary NOT GIVENUNK [place] Insurance:SELF PAY [facility] Number: Effective Repository Date:2018-04-28 01/28/2018 CHANTAL D Primary CHANTAL D [place] [id number] Insurance:MEDICARE HEILMANDOB: [facility] PART A [facility] [id number] Number: Repository [id number]: 330 [id number] [phone] () Date:2018-01-28 01/28/2018 Secondary CHANTAL D [place] Insurance:[facility] Number[facility] [id number] [facility] [id number] Repository Date:2018-01-28[address]ATTN: [place] [address]BL: 01/28/2018 Tertiary NOT GIVENUNK Lynda Insurance:SELF PAY [facility] Number: Effective Repository Date:2018-01-28 10/30/2017 Chantal Primary Chantal Lynda [id number] Insurance:MEDICARE HeilmanDOB: [facility] [id number] Number: Repository [id number]: [id number] [phone] Date:2016-08-30 () 10/30/2017 Secondary Chantal Slater Insurance:MEDICAIDPol HeilmanDOB: Community [facility] Number: [id number] [facility] [id number] Repository Date:2017-09-29 10/30/2017 Tertiary NOT GIVENUNK Lynda Insurance:SELF PAY [facility] Effective Repository Date:2017-09-29 10/27/2017 Chantal Primary Chantal Slater [id number] Insurance:MEDICARE HeilmanDOB: [facility] [id number] Number: Repository [id number]: [id number] [phone] Date:2017-10-27 () 10/27/2017 Secondary Chantal Slater Insurance:MEDICAIDPol HeilmanDOB: Community [facility] Number: [id number] [facility] [id number] Repository Date:2017-10-27 10/27/2017 Tertiary NOT GIVENUNK Lynda Insurance:SELF PAY [facility] Number: Effective Repository Date:2017-10-27 09/28/2017 Chantal Primary Chantal Howell [id number] Insurance:MEDICARE HeilmanDOB: [facility] [id number] Number: Repository [id number]: [id number] [phone] Date:2017-09-28 () 09/28/2017 Secondary Chantal Lynda Insurance:MEDICAIDPol HeilmanDOB: [facility] icy Number: [id number] [facility] [id number] Repository Date:2017-09-28 09/28/2017 Tertiary NOT GIVENUNK Slater Insurance:SELF PAY [facility] Number: Effective Repository Date:2017-09-28 08/14/2017 Chantal Primary Chantal Lynda [id number] Insurance:MEDICARE HeilmanDOB: [facility] [id number] Number: Repository [id number]: [id number] [phone] Date:2017-07-24 () 08/14/2017 Secondary Chantal Slater Insurance:MEDICAIDPol HeilmanDOB: Community [facility] Number: [id number] [facility] [id number] Repository Date:2017-07-24 08/14/2017 Tertiary NOT GIVENUNK Lynda Insurance:SELF PAY [facility] Number: Effective Repository Date:2017-07-24 06/10/2017 Chantal Primary Chantal Lynda [id number] Insurance:MEDICARE HeilmanDOB: [facility] [id number] Number: Repository [id number]: [id number] [phone] Date:2017-06-10 () 06/10/2017 Secondary Chantal Lynda Insurance:MEDICAIDPol HeilmanDOB: Community [facility] Number: [id number] [facility] [id number] Repository Date:2017-06-10 06/10/2017 Tertiary NOT GIVENUNK Slater Insurance:SELF PAY [facility] Number: Effective Repository Date:2017-06-10
== END ==
PROVIDERS: Family Provider Family Medicine; PCP Family Medicine; Referring Provider Family Medicine; Visit Provider Family Medicine
DX: G54.0 Brachial plexus disorders (principal)
CPT/HCPCS: 72050

== ENCOUNTER → 2018-05-06 09:15 | Outpatient (CLI) | payer MEDICARE, SELFPAY | PROVIDERS: Family Provider Family Medicine; PCP Family Medicine; Visit Provider Family Medicine | DX: Z78.0 Asymptomatic menopausal state (principal) ==

== ENCOUNTER → 2018-05-11 10:20 | Outpatient (CLI) | payer MEDICARE, SELFPAY ==
--- NOTE | 2018-05-11 10:28 | BD_ITS ---
STUDY: DUAL ENERGY X-RAY ABSORPTIOMETRY / DXA REASON FOR EXAM: Female, 67 years old. The patient is postmenopausal. Loss of height. TECHNIQUE: Bone Mineral Density (BMD) measurements of lumbar spine and bilateral hips were obtained. COMPARISON: None. FINDINGS: Lumbar Spine (L1-L4): g/cm2 (1.089) / T-score (-0.6) / Z-score (1.0) Findings are suggestive of with a low fracture risk. Left Femur Total: g/cm2 (1.105) / T-score (0.8) / Z-score (2.1) Left Femoral Neck: g/cm2 (0.979) / T-score (-0.4) / Z-score (1.1) Right Femur Total: g/cm2 (1.103) / T-score (0.8) / Z-score (2.0) Right Femoral Neck: g/cm2 (1.032) / T-score (0.0) / Z-score (1.5) BD/Dexa Bone Density Study IMPRESSION: The patient is considered normal as outlined below according to World Juan Organization (WHO) criteria with a low fracture risk. Reference Information: The T-score is the number of standard deviations above or below the standard which is normal for young adults at their peak bone mineral density. The World Health Organization (WHO) interprets the T-scores as follows: Above -1 Normal bone density Between -1 and -2.5 Osteopenia Equal to / or below -2.5 Osteoporosis As a practical clinical guideline, osteopenia may be graded as follows: Mild -1 through -1.5 Moderate -1.6 through -2.0 Severe -2.1 through -2.4 The Z-score is the number of standard deviations above or below age-matched controls. A Z-score of less than -1.5 would be considered abnormal. References: 1. NIH Osteoporosis and Related Bone Diseases http://www.osteo.org 2. International Society for Clinical Densitometry http://www.iscd.org 3. National Osteoporosis Foundation http://www.nof.org Electronically Signed: Anoop Samayoa MD at 15:40 EST Tel [phone], Service support ,
--- NOTE | 2018-05-18 20:29 | LEAS ---
Arterial Study - Arterial Study Arterial Study: This is a 67-year-old female with a history of hypertension. She presents with lower extremity pain which is exacerbated by ambulation. Suspecting the presence of intermittent claudication due to arterial insufficiency, the patient was brought to the noninvasive vascular laboratory at this time for the purpose of bilateral noninvasive lower extremity arterial assessment. Doppler signal assessment was used to evaluate the pulses at ankle level bilaterally. The posterior tibial and dorsalis pedis pulses were triphasic bilaterally. Segmental limb pressures were obtained at ankle level bilaterally. The right ankle pressure, as determined by posterior tibial pulse, was measured at 171 mmHg. The right ankle pressure, as determined by dorsalis pedis pulse, was measured at 170 mmHg. The left ankle pressure, as determined by posterior tibial pulse, was measured at 175 mmHg. The left ankle pressure, as determined by dorsalis pedis pulse, was measured at 162 mmHg. Resting ankle?brachial indices were calculated bilaterally. The resting right ankle?brachial index was calculated to be 1.10. The resting left ankle?brachial index was calculated to be 1.12. The patient was exercised on a treadmill at 1.4 mph and a 5% grade. The patient tolerated only 2 minutes of exercise due to lower extremity pain. 1 minute following cessation of exercise, the right ankle pressure was measured at 193 mmHg, and the left ankle pressure was measured at 201 mmHg. Impression: Based upon the findings of this resting and exercise noninvasive lower extremity arterial study, there is no evidence of significant atherosclerotic peripheral arterial occlusive disease in the lower extremities bilaterally. Triphasic waveforms were noted at ankle level bilaterally. Resting ankle?brachial indices were bilaterally normal. Following a short period of exercise, ankle pressures augment bilaterally, which is a normal physiological response. In summary, this represents a normal resting and exercise noninvasive lower extremity arterial study bilaterally.
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
== END ==
PROVIDERS: Family Provider Family Medicine; PCP Family Medicine; Referring Provider Family Medicine; Visit Provider Family Medicine
DX: M79.604 Pain in right leg (principal); M79.605 Pain in left leg; Z78.0 Asymptomatic menopausal state
CPT/HCPCS: 77080; 93922

== ENCOUNTER 2018-06-02 08:30 | Outpatient (RCR) | payer MEDICARE, SELFPAY ==
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
--- NOTE | 2018-06-02 09:05 | HP.PTDCSUM ---
HP - PT D/C Summary It has been my pleasure to treat MICHELLE MCGEE under orders from Joseph Armstrong MD, for the diagnosis of NECK PAIN AND ARTHRITIS for a total of 7 visit(s). Discharge Date: Please see the following information for a summary of their discharge status. - Subjective Subjective: PATIENT REPORTS SHE IS CONTINUING TO IMPROVE. JUST A LITTLE BIT OF PAIN TURNING FAR POSSIBLE ON THE LEFT SIDE OF HER NECK. NO PAIN LOOKING RIGHT NOW. - Pain NECK Pain Intensity (Out of 10): 1 - Overall Improvement % Improvement: 99 - Objective Objective/Function: PATIENT DID FINE WITHOUT THE US LAST VISIT AND HAS CONTINUED TO IMPROVE. SHE HAS LITTLE TO NO NECK PAIN NOW. ALL PT GOALS HAVE BEEN MET AND SHE IS APPROPRIATE FOR DISCHARGE TO [facility] AND AGREEABLE. Motor deficit: RIGHT HANDED WITH RIGHT GUITAR INSTRUCTOR STRENGTH OF 45 LBS AND LEFT 38 LBS. RIGHT UE STRENGTH 5/5 WITH MMT'ING. LEFT SHOULD FLEX 4/5, ABD 4-/5, IR 5/5, ER 4/5. ELBOW 5/5. Sensory deficit: YASMINE UE LIGHT TOUCH SENSATION IS INTACT AND SYMMETRICAL. ROM deficit: YASMINE UE'S WFL. Reflexes: 2/2 YASMINE BICEPS AND UNABLE TO ELICIT YASMINE FOREARMS. Dural Signs: POSITIVE LEFT UE. Cervical Mvmt Loss: Flex: NIL. Pro: NIL. Ext: MOD. Ret: MOD. RSB: MIN. LSB: MOD. R Rot: MIN. L Rot: MIN. PATIENT WITH REPORTS OF A LITTLE BIT OF PULLING IN YASMINE UE'S AT END RANGE CERVICAL FLEX ROM WITH TESTING AND IT DOES NOT REMAIN WORSE A RESULT. PATIENT TO MONITOR AND REPORT TO DR. ARMSTRONG IF CONTINUES AT FOLLOW UP. Postural strength: POOR. Palpation: NO ACUTE TENDERNESS WITH PALPATION OF CERVICAL SPINE OR MUSCULATURE BUT INCREASED MUSCLE TONE THROUGHOUT. OTHER: CERVICAL DISTRACTION TESTING RESULTS IN NO C/O TINGLING IN LEFT FINGERS OR OTHER SX'S WITH TESTING TODAY. NECK OSWESTRY SCORE HAS IMPROVED FROM 15 TO 0. - Goals Goal 1:: DECREASE C/O NECK AND LEFT UE SX'S Goal Progress: Goal Met Goal 2:: IMPROVE PERSONAL CARE, LIFITNG, READING, SLEEP, WORK, DRIVING AND RECREATIONAL FUNCTION Goal Progress: Goal Met Goal 3:: INSTRUCT IN PROPHYLAXIS Goal Progress: Goal Met - Plan Plan: D/C TO INDEP HEP. PATIENT IS AGREEABLE. - D/C Information If there are questions or concerns regarding this patient's physical therapy, please feel free to call me at [phone]. Thank you for the referral of this patient. Sincerely, Brooke Crowell, PT, Cert MDT
== END 2018-06-02 19:00 | disposition home or self-care (01) ==
LOC: PT 08:30
PROVIDERS: Family Provider Family Medicine; PCP Family Medicine; Referring Provider Family Medicine; Visit Provider Family Medicine
DX: M54.2 Cervicalgia (principal); M19.90 Unspecified osteoarthritis, unspecified site
CPT/HCPCS: 97035; 97110; 97162; 97530

== ENCOUNTER → 2018-07-21 09:25 | Outpatient (CLI) | payer MEDICARE, SELFPAY ==
--- NOTE | 2018-07-21 09:35 | RAD_ITS ---
STUDY: X-RAY - RIGHT KNEE REASON FOR EXAM: Pain. TECHNIQUE: 3 view(s) of the knee. COMPARISON: Radiograph report 04/25/2011. FINDINGS: Normal visualized distal femur. Normal visualized proximal tibia and fibula with a prominent anterior tibial tubercle. Normal proximal tibiofibular articulation. There is mild joint space narrowing of the medial femorotibial compartment. Normal lateral femorotibial compartment. Normal patellofemoral articulation. There is a small enthesophyte at the superior pole of the patella. RAD/Knee 3 Views IMPRESSION: Mild arthrosis of the medial femorotibial compartment. Electronically Signed: Teto Stack MD at 11:20 EST Tel , Service support ,
--- NOTE | 2018-07-21 09:35 | RAD_ITS ---
STUDY: X-RAY - LEFT KNEE REASON FOR EXAM: Pain. TECHNIQUE: 3 view(s) of the knee. COMPARISON: None. FINDINGS: Normal visualized distal femur. Normal visualized proximal tibia and fibula. Normal proximal tibiofibular articulation. There is moderate joint space narrowing of the medial femorotibial compartment. Normal lateral femorotibial compartment. Normal patellofemoral articulation. There is an enthesophyte at the superior pole of the patella. RAD/Knee 3 Views IMPRESSION: Arthrosis of the medial femorotibial compartment. Patellar enthesophyte. Electronically Signed: Teto Stack MD at 11:17 EST Tel , Service support ,
--- NOTE | 2018-07-21 09:35 | RAD_ITS ---
STUDY: X-RAY - LUMBAR SPINE REASON FOR EXAM: Female, 67 years old. SPONDYLOLISTHESIS TECHNIQUE: 5 view(s) of the lumbar spine were obtained. COMPARISON: November 28, 2014 FINDINGS: Normal lumbar lordosis. There is minimal grade 1 anterolisthesis at L4/L5 which is stable in comparison with the prior examination There is multilevel endplate spondylosis of the lumbar vertebrae. There is multi-level degenerative disc disease with multi-level disc space narrowing. The soft tissue structures are unremarkable. RAD/L/S Spine Min 4 Views IMPRESSION: Degenerative changes of the spine. Electronically Signed: Celine Montoya MD at 9:12 EST Tel , Service support ,
== END ==
PROVIDERS: Family Provider Family Medicine; PCP Family Medicine; Referring Provider Family Medicine; Visit Provider Family Medicine
DX: M25.561 Pain in right knee (principal); M25.562 Pain in left knee; M43.16 Spondylolisthesis, lumbar region
CPT/HCPCS: 72110; 73562

== ENCOUNTER 2018-08-16 09:30 | Outpatient (RCR) | payer MEDICARE, SELFPAY ==
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
--- NOTE | 2018-08-16 10:17 | HP.PTDCSUM_ITS ---
HP - PT D/C Summary It has been my pleasure to treat MICHELLE MCGEE under orders from Joseph Armstrong MD, for the diagnosis of CHRONIC BACK PAIN/FIBROMYALGIA W/LEG SORENESS.R KNEE TENDONITIS.B KNEE ARTH for a total of 6 visit(s). Discharge Date: Please see the following information for a summary of their discharge status. 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 SHE REPORTS HER PAIN IS NOT REALLY BETTER AND SHE IS STILL STRUGGLING DAY TO DAY TRYING TO DO THINGS LIKE GROCERY SHOPPING. PATIENT REPORTS THE CANE DOES HELP SOME IF SHE IS HURTING REALLY BAD. PATIENT RELATES HER INCREASED PAIN TODAY TO THE COLD WEATHER (JENSEN AND SNOW). SHE REPORTS HER LAST PT SESSION WENT WELL. 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 STATES SHE DOES NOT THINK SHE NEEDS ANYMORE PT AT THIS TIME. SHE WANTS TO SEE IF THE DOCTOR ORDERS MORE TESTS ON HER BACK TOMORROW AND STATES SHE IS WILLING TO HAVE SURGERY ON HER BACK - I AM WILLING TO DO ANYTHING TO HELP THIS PAIN. LEFT BIG TOE PAIN THURSDAY NIGHT FOR NO APPARENT REASON. IT IS STILL SORE. - Pain bilat. LB Pain Intensity (Out of 10): 7 bilat LE's Pain Intensity (Out of 10): 7 R thigh Pain Intensity (Out of 10): 7 - Overall Improvement % Improvement: 10 - Objective Objective/Function: PATIENT SHOWS ONLY MINIMAL IMPROVEMENT WITH PHYSICAL THERAPY. SHE CONTINUES TO HAVE SIGNIFICANT C/O'S OF PAIN AND NEW C/O PAIN IN LEFT GREAT TOE STARTING OVER THE WEEKEND. SHE IS INDEP WITH BOTH GYM AND HOME EX PROGRAMS BUT RECOMMENDED PATIENT PROCEED IN THE GYM WITH CAUTION AND TO DISCUSS WITH DR. ARMSTRONG TOMORROW. PHYSICIAN RE-ASSESSMENT RECOMMENDED. INDEP ANTALGIC GAIT INTO PT WITH A STRAIGHT CANE. WIDE BASE OF SUPPORT AND SHORT YASMINE STRIDE LENGTH. DECREASED CADANCE. Motor deficit: YASMINE HIPS 4-/5, RIGHT KNEE EXT 4/5, LEFT KNEE EXT 5/5. KNEE FLEX 5/5, ANKLES 5/5. YASMINE EHL 5/5. Sensory deficit: DECREASED LIGHT TOUCH RIGHT QUAD COMPARED TO LEFT ANTERIORLY AND LATERALLY. ROM deficit: TIGHT YASMINE HIP FLEXORS. MILD YASMINE HAMSTRING TIGHTNES. Dural Signs: POSITIVE YASMINE LE'S. Lumbar mvmt loss: flex - MIN. ext - JORGE. R SG - MOD. L SG - MOD. PATIENT WITH C/O INCREASED PAIN WITH LUMBAR ROM TESTING ALL PLANES ESPECIALLY EXTENSION AND LEFT SG. JUST ATTEMPS AT POSTURE CORRECTION IN SITTING PROVOKES INCREASED YASMINE LE PAIN THAT REMAINS WORSE A RESULT. Core strength: POOR. LUMBAR OSWESTRY SCORE HAS IMPROVED FROM 27 TO 21. DESPITE PATIENT REPORTING FEELING STRONGER/TESTING STRONGER AND HAVING IMPROVED OSWESTRY SCORE PATIENT DENIES IMPROVED ADL'S AND GAIT DEMO'D TODAY HAS NOT IMPROVED. SHE IS REPORTING HIGH PAIN LEVELS TODAY. - Goals Goal 1:: DECREASE C/O BACK AND YASMINE LE SX'S Goal Progress: Not Progressing Goal 2:: IMPROVE STANDING, WALKING, BENDING, LIFTING AND ADL FUNCTION Goal Progress: Not Progressing Goal 3:: INSTRUCT IN PROPHYLAXIS Goal Progress: Not Progressing - Plan Plan: D/C DUE TO MINIMAL PROGRESS AND FOR PHYSICIAN RE-ASSESSMENT. PATIENT AGREEABLE. - D/C Information If there are questions or concerns regarding this patient's physical therapy, please feel free to call me at [phone]. Thank you for the referral of this patient. Sincerely, Brooke Crowell, PT, Cert MDT
== END 2018-08-16 19:00 | disposition home or self-care (01) ==
LOC: PT 09:30
PROVIDERS: Family Provider Family Medicine; PCP Family Medicine; Referring Provider Family Medicine; Visit Provider Family Medicine
DX: M54.9 Dorsalgia, unspecified (principal); G89.29 Other chronic pain; M79.7 Fibromyalgia; M76.50 Patellar tendinitis, unspecified knee
CPT/HCPCS: 97110; 97162; 97530

== ENCOUNTER → 2018-09-20 | Outpatient (CLI) | payer MEDICARE, SELFPAY ==
--- NOTE | 2018-09-20 16:21 | MRI_ITS ---
STUDY: MRI LUMBAR SPINE WITHOUT CONTRAST REASON FOR EXAM: Female, 68 years old. Low back pain radiating to hips TECHNIQUE: Standardized fat and water weighted pulse sequences were obtained in the sagittal and axial planes. COMPARISON: None FINDINGS: T12-L1: Normal endplates. Normal disc height, desiccation and normal morphology. Normal bilateral facet joints. Normal central canal and bilateral lateral recesses. Normal bilateral intervertebral neural foramina. Normal lumbar lordosis. There is no substantial scoliosis. Normal conus medullaris that terminates at L1 L1-2: Normal endplates. Normal disc height, desiccation and tiny right paracentral disc protrusion.. Normal bilateral facet joints. Normal central canal and bilateral lateral recesses. Normal bilateral intervertebral neural foramina. L2-3: Normal endplates. Normal disc height, desiccation and normal morphology. Normal bilateral facet joints. Normal central canal and bilateral lateral recesses. Normal bilateral intervertebral neural foramina. L3-4: Grade 1 spondylolisthesis Normal endplates. Normal disc height, desiccation and minor bulging disc osteophyte complex.. Facet arthropathy and thickening of ligamenta flava.. Moderate narrowing of the central canal. Moderate bilateral recess and neuroforaminal stenosis exaggerated by shortened pedicles L4-5: Grade 1 spondylolisthesis narrowed disc space with desiccation of the disc and mild to moderate bulging disc osteophyte complex. Bilateral facet arthropathy and thickening of ligamenta flava.. Moderate central canal stenosis. Moderate to severe bilateral recess and neuroforaminal stenosis exaggerated by shortened pedicles L5-S1: Normal endplates. Normal disc height, desiccation and minor bulging of the annulus.. Bilateral facet arthropathy slightly greater on the left.. Normal central canal and bilateral lateral recesses. Moderate right neuroforaminal stenosis and moderate to severe narrowing on the left. Normal visualized sacral ala. Normal visualized paraspinous soft tissue structures. MRI/Spine Lumbar (Routine) IMPRESSION: No evidence for acute fracture or subluxation Spinal stenosis at L3-4, L4-5 and L5-S1 secondary to disc disease and bony hypertrophy exaggerated by shortening of the pedicles due to spondylolisthesis deformity L3-4 and L4-5. Findings as above Electronically Signed: Jony Acosta MD at 19:07 EDT , Service support ,
== END | disposition home or self-care (01) ==
LOC: MRI 16:17
PROVIDERS: Family Provider Family Medicine; PCP Family Medicine; Referring Provider Family Medicine; Visit Provider Family Medicine
DX: M43.16 Spondylolisthesis, lumbar region (principal)
CPT/HCPCS: 72148

== ENCOUNTER → 2018-09-22 | Outpatient (CLI) | payer MEDICARE, SELFPAY ==
[2018-09-22 15:39] LABS: Absolute Lymphocyte Count 2.01 X10^3/ul (0.83-4.51); Absolute Neutrophil Count 2.7 X10^3/uL (2.0-7.7); Basophil# 0.02 X10^3/uL; Basophil% 0.4 % (0-1); Eosinophils% 3.8 % (0-5); Hematocrit 37.5 % (37-47); Hemoglobin 11.9 g/dl (12.0-15.0); Lymphocyte # 2.01 X10^3/ul (4.0); Lymphocyte % 38.1 % (19-41); Mean Corp Hgb Conc 31.7 g/gl (32-36); Mean Corpuscular Hgb 28.5 pg (27.0-32.0); Mean Corpuscular Volume 89.9 fL (81-99); Mean Platelet Vol. 10.3 fl (6.2-12.0); Monocyte# 0.33 X10^3/uL; Monocyte% 6.3 % (0-10); Neutrophil # 2.71 X10^3/uL (2.7-7.7); Neutrophil % 51.2 % (47-70); Platelet Count 290 K/mm3 (150-450); Red Blood Count 4.17 M/mm3 (4.2-5.4); White Blood Count 5.3 K/mm3 (4.4-11.0)
[2018-09-22 15:41] LABS: POSITIVE COUNT NO; POSITIVE DIFFERENTIAL NO; POSITIVE MORPHOLOGY NO
[2018-09-22 15:49] LABS: Erythrocyte Sedimentation Rate 24 mm/hr (0-30)
[2018-09-22 15:52] LABS: Hemoglobin A1c 6.8 % (4.2-6.3)
[2018-09-22 15:58] LABS: Microalbumin,Random Urine 14.5 mg/L (NO RANGE EST.); Microalbumin:Creatinine Ratio 13.2 mg/g CRE (<30 mg/g CRE)
[2018-09-22 16:41] LABS: ALB/GLOB Ratio 0.9 RATIO (0.9-2.4); AST(SGOT) 27 U/L (15-37); Alanine Aminotransfer ALT/SGPT 37 U/L (13-56); Albumin, Serum 3.6 g/dL (3.2-5.0); Alkaline Phosphatase 59 U/L (45-117); Anion Gap 8 (5-15); BUN 18 mg/dL (7-18); BUN/Creat Ratio 19.9 RATIO (10-20); CRP < 2.90 mg/L (0.0-3.0); Chloride 106 mmol/L (98-107); Cholesterol 212 mg/dL (200); Creatinine, Serum 0.91 mg/dL (0.55-1.02); EST Glomerular Filtration Rate 66 mL/min (>60); Est Glom Filt Rate - Afr Amer 80 mL/min (>60); Globulin 3.9 g/dL (2.2-4.2); Glucose 164 mg/dL (74-106); High Density Lipoprotein 60 mg/dL; Potassium 3.7 mmol/L (3.5-5.1); Protein, Total 7.5 g/dL (6.4-8.2); Sodium Level 141 mmol/L (136-145); Thyroid Stim Hormone (TSH) 2.07 uIU/mL (0.358-3.74); Triglycerides 222 mg/dL; Very Low Density Lipoprotein 44 mg/dL (5-40)
[2018-09-22 16:58] LABS: Vitamin D,25 Hydroxy 53.3 ng/mL (29.95-100.01)
== END | disposition home or self-care (01) ==
LOC: MFPLAB 14:10
PROVIDERS: Family Provider Family Medicine; PCP Family Medicine; Referring Provider Family Medicine; Visit Provider Family Medicine
DX: E11.9 Type 2 diabetes mellitus without complications (principal); E55.9 Vitamin D deficiency, unspecified; M43.16 Spondylolisthesis, lumbar region
CPT/HCPCS: 36415; 80053; 80061; 82043; 82306; 82570; 83036; 84443; 85025; 85652; 86140

== ENCOUNTER → 2018-11-11 | Outpatient (CLI) | payer MEDICARE, MEDICAID, SELFPAY ==
[2018-11-11 10:17] VITALS: BMI 40.6
--- NOTE | 2018-11-11 10:23 | RAD_ITS ---
STUDY: X-RAY - RIGHT SHOULDER REASON FOR EXAM: Right shoulder pain. TECHNIQUE: 3 view(s) of the shoulder. COMPARISON: None. FINDINGS: Normal glenohumeral articulation. Normal acromioclavicular joint. There is an os acromiale. Normal humeral head and visualized proximal humerus. The soft tissue structures are unremarkable. Normal visualized pulmonary apex. RAD/Shoulder min 2 Views IMPRESSION: Os acromiale. Electronically Signed: Teto Stack MD at 13:40 EDT Tel , Service support ,
== END | disposition home or self-care (01) ==
PROVIDERS: Family Provider Family Medicine; PCP Family Medicine; Referring Provider Orthopaedic Surgery; Visit Provider Orthopaedic Surgery
DX: S49.91XA Unspecified injury of right shoulder and upper arm, initial encounter (principal)
CPT/HCPCS: 73030

== ENCOUNTER → 2018-11-18 | Outpatient (CLI) | payer MEDICARE, MEDICAID, SELFPAY ==
[2018-11-11 10:17] VITALS: BMI 40.6
--- NOTE | 2018-11-18 06:59 | MRI_ITS ---
STUDY: MRI RIGHT SHOULDER REASON FOR EXAM: Arm pain and limited range of motion for 3 weeks. TECHNIQUE: Standardized fat and water weighted pulse sequences were obtained in all 3 orthogonal planes. COMPARISON: Radiographs 11/11/2018. FINDINGS: There is a full-thickness tear of the supraspinatus and infraspinatus tendons retracted approximately 2.1 cm to the level of the acromioclavicular joint (T2 coronal images 5-13). Normal subscapularis tendon. Normal teres minor tendon. Normal supraspinatus muscle. There is mild edema in the distal infraspinatus muscle. Normal subscapularis muscle. Normal teres minor muscle. There is a glenohumeral joint effusion. There is superior migration of the humeral head secondary to the retracted rotator cuff tear. There is poor visualization of the intracapsular long biceps tendon and therefore may be torn. Normal labrum. Normal capsulo- ligamentous complex. There is acromioclavicular arthrosis with a small undersurface osteophyte of the distal clavicle (T2 sagittal image 15). There is no demonstrated os acromiale on the MRI examination although this was suspected on the plain films. There is a Type II morphology (curved), with a neutral orientation. There is a small volume of subacromial-subdeltoid bursal fluid. Normal visualized coracohumeral and coracoacromial ligaments. Normal deltoid muscle. Normal trapezius muscle. MRI/Upper Ext Joint Only(Routine) IMPRESSION: Full-thickness tear of the supraspinatus and infraspinatus tendons. Poor visualization of the intracapsular long biceps tendon and therefore may be torn. Acromioclavicular arthrosis. Glenohumeral joint fluid communicating with the subacromial-subdeltoid bursa. Electronically Signed: Teto Stack MD at 8:51 EDT Tel , Service support ,
== END | disposition home or self-care (01) ==
PROVIDERS: Family Provider Family Medicine; PCP Family Medicine; Referring Provider Orthopaedic Surgery; Visit Provider Orthopaedic Surgery
DX: S46.011A Strain of muscle(s) and tendon(s) of the rotator cuff of right shoulder, initial encounter (principal)
CPT/HCPCS: 73221

== ENCOUNTER → 2018-12-07 | Outpatient (CLI) | payer MEDICARE, MEDICAID, SELFPAY ==
[2018-12-07 10:14] VITALS: BMI 40.6
--- NOTE | 2018-12-07 10:22 | RAD_ITS ---
STUDY: X-RAY - LUMBAR SPINE REASON FOR EXAM: Female, 68 years old. Back pain TECHNIQUE: 4 view(s) of the lumbar spine were obtained. COMPARISON: July 21, 2018 lumbar spine, FINDINGS: Normal lumbar lordosis. There is no substantial scoliosis. There is persistent anterolisthesis of the level of L4-L5 with slight interval worsening when compared to the prior study. With flexion and extension there is no apparent significant change in the amount of anterolisthesis. There is facet arthropathy. There is multilevel endplate spondylosis of the lumbar vertebrae. No disc space narrowing L3-L4 L4-L5 and to lesser degree L5-S1. There is postoperative change in the right upper quadrant status post cholecystectomy. RAD/L/S Spine Min 4 Views IMPRESSION: Slightly worse anterolisthesis L4-L5 when compared to prior studies. No evidence of significant change or instability with flexion and extension. Electronically Signed: Michelle Cleary MD at 17:02 EDT Tel , Service support ,
== END | disposition home or self-care (01) ==
LOC: HPRAD 10:21
PROVIDERS: Family Provider Family Medicine; PCP Family Medicine; Visit Provider Orthopaedic Surgery
DX: M54.5 Low back pain (principal)
CPT/HCPCS: 72110

== ENCOUNTER → 2019-01-03 | Outpatient (CLI) | payer MEDICARE, MEDICAID, SELFPAY ==
[2018-12-07 10:14] VITALS: BMI 40.6
[2019-01-03 12:29] LABS: Absolute Neutrophil Count 3.2 X10^3/uL (2.0-7.7); Basophil# 0.02 X10^3/uL; Basophil% 0.4 % (0-1); Eosinophil# 0.18 X10^3/uL; Eosinophils% 3.5 % (0-5); Hematocrit 40.1 % (37-47); Hemoglobin 12.8 g/dL (12.0-15.0); Lymphocyte % 26.9 % (19-41); Mean Corp Hgb Conc 31.9 g/dL (32-36); Mean Corpuscular Hgb 29.3 pg (27.0-32.0); Mean Corpuscular Volume 91.8 fL (81-99); Mean Platelet Vol. 9.6 fl (6.2-12.0); Monocyte# 0.38 X10^3/uL; Monocyte% 7.3 % (0-10); NRBC Flagged by Analyzer 0 % (0-5); Neutrophil # 3.21 X10^3/uL (2.7-7.7); Neutrophil % 61.5 % (47-70); Platelet Count 287 K/mm3 (150-450); RBC Distribution Width CV 13.1 % (11.6-14.6); RBC Distribution Width SD 43.7 fl (35.1-43.9); Red Blood Count 4.37 M/mm3 (4.2-5.4); White Blood Count 5.2 K/mm3 (4.4-11.0)
[2019-01-03 12:48] LABS: Anion Gap 6 (5-15); BUN 15 mg/dL (7-18); BUN/Creat Ratio 16.3 RATIO (10-20); Calcium,Total 9.6 mg/dL (8.5-10.1); Chloride 103 mmol/L (98-107); Creatinine, Serum 0.92 mg/dL (0.55-1.02); EST Glomerular Filtration Rate 65 mL/min (>60); Est Glom Filt Rate - Afr Amer 78 mL/min (>60); Glucose 205 mg/dL (74-106); Magnesium 1.9 mg/dL (1.6-2.6); Potassium 4.3 mmol/L (3.5-5.1); Sodium Level 137 mmol/L (136-145)
== END | disposition home or self-care (01) ==
LOC: MFPLAB 09:56
PROVIDERS: Nurse Practitioner Adult Health; Family Provider Family Medicine; PCP Family Medicine; Visit Provider Family Medicine
DX: R25.2 Cramp and spasm (principal); R53.83 Other fatigue
CPT/HCPCS: 36415; 80048; 83735; 85025

== ENCOUNTER → 2019-02-24 | Outpatient (CLI) | payer MEDICARE, MEDICAID, SELFPAY ==
[2018-12-07 10:14] VITALS: BMI 40.6
[2019-02-24 15:39] LABS: Absolute Lymphocyte Count 1.84 X10^3/uL (0.83-4.51); Absolute Neutrophil Count 4.7 X10^3/uL (2.0-7.7); Basophil# 0.04 X10^3/uL; Basophil% 0.5 % (0-1); Eosinophil# 0.25 X10^3/uL; Eosinophils% 3.3 % (0-5); Hematocrit 31.3 % (37-47); Hemoglobin 9.6 g/dL (12.0-15.0); Lymphocyte # 1.84 X10^3/ul (4.0); Lymphocyte % 24.2 % (19-41); Mean Corp Hgb Conc 30.7 g/dL (32-36); Mean Corpuscular Hgb 28.4 pg (27.0-32.0); Mean Corpuscular Volume 92.6 fL (81-99); Mean Platelet Vol. 9.2 fl (6.2-12.0); Monocyte# 0.73 X10^3/uL; Monocyte% 9.6 % (0-10); NRBC Flagged by Analyzer 0 % (0-5); Neutrophil # 4.65 X10^3/uL (2.7-7.7); Neutrophil % 61.3 % (47-70); Platelet Count 554 K/mm3 (150-450); RBC Distribution Width CV 13.5 % (11.6-14.6); RBC Distribution Width SD 45.1 fl (35.1-43.9); Red Blood Count 3.38 M/mm3 (4.2-5.4); White Blood Count 7.6 K/mm3 (4.4-11.0)
[2019-02-24 16:26] LABS: ALB/GLOB Ratio 0.6 RATIO (0.9-2.4); AST(SGOT) 44 U/L (15-37); Alanine Aminotransfer ALT/SGPT 38 U/L (13-56); Albumin, Serum 2.9 g/dL (3.2-5.0); Alkaline Phosphatase 94 U/L (45-117); Anion Gap 6 (5-15); BUN 13 mg/dL (7-18); BUN/Creat Ratio 17.5 RATIO (10-20); Calcium,Total 8.8 mg/dL (8.5-10.1); Chloride 105 mmol/L (98-107); Creatinine, Serum 0.74 mg/dL (0.55-1.02); EST Glomerular Filtration Rate 83 mL/min (>60); Est Glom Filt Rate - Afr Amer 100 mL/min (>60); Ferritin 85 ng/mL (8-252); Globulin 4.7 g/dL (2.2-4.2); Glucose 112 mg/dL (74-106); Potassium 4.5 mmol/L (3.5-5.1); Protein, Total 7.6 g/dL (6.4-8.2); Sodium Level 139 mmol/L (136-145)
[2019-02-24 17:08] LABS: Hemoglobin A1c 6.9 % (4.2-6.3)
== END | disposition home or self-care (01) ==
LOC: MFPLAB 14:51
PROVIDERS: Family Provider Family Medicine; PCP Family Medicine; Referring Provider Family Medicine; Visit Provider Family Medicine
DX: E11.9 Type 2 diabetes mellitus without complications (principal); M79.604 Pain in right leg; M79.605 Pain in left leg
CPT/HCPCS: 36415; 80053; 82728; 83036; 85025

== ENCOUNTER → 2019-03-22 | Outpatient (CLI) | payer MEDICARE, MEDICAID, SELFPAY ==
[2019-03-22 13:26] VITALS: BMI 40.6
--- NOTE | 2019-03-22 13:33 | RAD_ITS ---
STUDY: X-RAY - LUMBAR SPINE REASON FOR EXAM: Female, 68 years old. Pain. TECHNIQUE: 2 view(s) of the lumbar spine were obtained. COMPARISON: X-rays dated December 07, 2018 FINDINGS: Right upper quadrant surgical clips. Lumbar fixation hardware extending from L3 through S1. L4-5 intervertebral disc spacer. Multilevel laminectomy. Lumbar lordosis preserved. No significant scoliosis. Mild multilevel endplate spondylosis. Small anterior osteophytes. Neural foraminal narrowing predominates at L5-S1. Multilevel facet joint arthrosis/bone graft. No acute fracture line. No acute dislocation. No acute bone destruction. Normal bowel gas pattern. Normal soft tissue structures. RAD/Lumbar Spine 2 or 3 Views IMPRESSION: Uncomplicated appearing postoperative changes Mild lumbar spine osteoarthritis Electronically Signed: Joseph Mendiola DO at 9:20 EDT Tel , Service support ,
== END | disposition home or self-care (01) ==
LOC: HPRAD 13:33
PROVIDERS: Family Provider Family Medicine; PCP Family Medicine; Referring Provider Orthopaedic Surgery; Visit Provider Orthopaedic Surgery
DX: M54.5 Low back pain (principal)
CPT/HCPCS: 72100

== ENCOUNTER → 2019-03-30 | Outpatient (CLI) | payer MEDICARE, MEDICAID, SELFPAY ==
[2019-03-22 13:26] VITALS: BMI 40.6
[2019-03-30 12:25] LABS: Hematocrit 39.1 % (37-47); Hemoglobin 11.7 g/dL (12.0-15.0); Mean Corp Hgb Conc 29.9 g/dL (32-36); Mean Corpuscular Hgb 27.3 pg (27.0-32.0); Mean Corpuscular Volume 91.4 fL (81-99); Platelet Count 344 K/mm3 (150-450); RBC Distribution Width CV 13.9 % (11.6-14.6); RBC Distribution Width SD 46.7 fl (35.1-43.9); Red Blood Count 4.28 M/mm3 (4.2-5.4); White Blood Count 6.3 K/mm3 (4.4-11.0)
[2019-03-30 12:46] LABS: ALB/GLOB Ratio 0.9 RATIO (0.9-2.4); AST(SGOT) 19 U/L (15-37); Alanine Aminotransfer ALT/SGPT 25 U/L (13-56); Albumin, Serum 3.6 g/dL (3.2-5.0); Alkaline Phosphatase 82 U/L (45-117); Anion Gap 6 (5-15); BUN 23 mg/dL (7-18); BUN/Creat Ratio 28.8 RATIO (10-20); Calcium,Total 8.8 mg/dL (8.5-10.1); Chloride 105 mmol/L (98-107); EST Glomerular Filtration Rate 76 mL/min (>60); Est Glom Filt Rate - Afr Amer 92 mL/min (>60); Globulin 4.2 g/dL (2.2-4.2); Glucose 120 mg/dL (74-106); Potassium 4.8 mmol/L (3.5-5.1); Protein, Total 7.8 g/dL (6.4-8.2); Sodium Level 138 mmol/L (136-145)
[2019-03-30 12:48] LABS: Hemoglobin A1c 6.4 % (4.2-6.3)
== END | disposition home or self-care (01) ==
LOC: MFPLAB 10:56
PROVIDERS: Family Provider Family Medicine; PCP Family Medicine; Visit Provider Family Medicine
DX: E11.9 Type 2 diabetes mellitus without complications (principal); M48.061 Spinal stenosis, lumbar region without neurogenic claudication
CPT/HCPCS: 36415; 80053; 83036; 85027

== ENCOUNTER → 2019-05-10 09:56 | Outpatient (CLI) | payer MEDICARE, MEDICAID, SELFPAY ==
[2019-03-22 13:26] VITALS: BMI 40.6
--- NOTE | 2019-05-10 10:00 | RAD_ITS ---
STUDY: X-RAY - LUMBAR SPINE REASON FOR EXAM: Female, 68 years old. Pain. TECHNIQUE: 2 view(s) of the lumbar spine were obtained. COMPARISON: Lumbar spine, March 22, 2019 FINDINGS: Normal lumbar lordosis. There is no substantial scoliosis. There is a normal alignment of the vertebrae. Again seen is posterior fusion of L3-S1. The hardware is intact.. The disc spaces above the fusion appear normal. There is no evidence of acute fracture or loss of vertebral axial height. The soft tissue structures are unremarkable. Cholecystectomy clips are seen in the right upper quadrant. RAD/Lumbar Spine 2 or 3 Views IMPRESSION: Surgical changes lower lumbar spine without interval change. Electronically Signed: Greyson Galloway DO at 17:31 EST Tel [phone], Service support ,
== END ==
PROVIDERS: Family Provider Family Medicine; PCP Family Medicine; Referring Provider Orthopaedic Surgery; Visit Provider Orthopaedic Surgery
DX: Z98.1 Arthrodesis status (principal)
CPT/HCPCS: 72100

== ENCOUNTER 2019-06-21 09:30 | Outpatient (RCR) | payer MEDICARE, MEDICAID, SELFPAY ==
[2019-05-10 09:58] VITALS: BMI 40.6
--- NOTE | 2019-05-17 10:06 | HP.PTEVAL ---
Patient's Visit Information MICHELLE MCGEE is a 68 year old F referred to Physical Therapy by Holli Saavedra MD with a diagnosis of S/P L3-S1 LUMBAR LAMINECTOMY/FUSION. Date of Evaluation: 05/17/19 Physical Therapist: Brooke Crowell, PT, Cert MDT - Visit Plan Frequency: 2-3x /Week Duration: 4-6 Weeks Plan: POSTURE CORRECTION/STRENGTHENING, INSTRUCTION IN APPROPRIATE BODY MECHANICS AND ACTIVITY MODIFICATIONS. DLS STARTING WITH A NEUTRAL SPINE PROGRESSING ROM TOLERATED STARTING WITH SKTC AND LTR IN LYING AFTER 2 WEEKS. YASMINE LE ROM, STRETCHING AND STRENGTHENING. HEP INSTRUCTION. *MINIMAL LIFTING > 10 LBS, BENDING, PUSHING, PULLING, TWISTING AND OVER HEAD EXTENSION FOR 4-6 WEEKS. - Subjective Findings: Work/Leisure: RETIRED. Disability: NO. Present symptoms: LOW BACK PAIN. NO LONGER HAVING ANY LEG SYMPTOMS AND PATINET IS VERY HAPPY ABOUT THIS. Present since: CHRONIC. Pain Scale: WORST 2/10, LEAST 0/10. Currently: /10. Commenced as a result of: ARTHRITIS/STENOSIS. Symptoms at onset: LEGS. Worse: TOO MUCH AND WALKING. Better: SITTING. Disturbed sleep: NO. Previous history/Previous treatment: PHYSICAL THERPAY, AQUATIC THERAPY. NO INJECTIONS OR PRIOR SURGERY. LUMBAR LAMINECTOMY/FUSION 02/14/19. Coughing/sneezing/straining: NO. Gait: PATIENT REPORTS THAT SHE IS WALKING BETTER NOW THAN SHE HAS IN 2-3 YEARS OR MORE. Difficulty initiating urinatin: NO. Accidents: NO. Unexplained weight loss: NO. Imaging: PATIENT REPORTS THAT AFTER X-RAYS AFTER SURGERY DR. SAAVEDRA RELEASED HER FROM ALL RESTRICTIONS. PMH: RIGHT SHOULDER PAIN, H/O NECK PAIN, NIDDM, OA, HTN, FIBROMYALGIA. Recent major surgery: FEB 14 2019 LUMBAR LAMINECTOMY AND FUSION L3-S1 - DR. SAAVEDRA. IN [place]. MOUTH SURGERY LAST WEEK - ON [place] - Objective Sitting/Standing Posture: POOR. FH. RS. DECREASED LORDOSIS. Active Correction of posture: NE. Other Observations: INDEP GAIT INTO PT WITH FAIR CADANCE, NO AD'S AND NO LOB. Motor deficit: YASMINE LE'S GROSSLY 5/5 WITH MMT'ING EXCEPT FOR HIPS GRADED 4/5. Sensory deficit: YASMINE LE LIGHT TOUCH SENSATION INTACT AND SYMMETRICAL. ROM deficit: TIGHT YASMINE HIP FLEXORS, HS'S AND GASTROC SOLEUS COMPLEX'S. Reflexes: NT. Dural Signs: NEGATIVE YASMINE LE'S. Lumbar mvmt loss: flex - MIN. ext - JORGE. R SG - JORGE. L SG - JORGE. PATIENT DENIES INCREASED PAIN WITH LUMBAR ROM TESTING. Core strength: POOR. Palpation: NO ACUTE TENDERNESS. INCISION LOOKS GOOD WITHOUT ANY SIGNS OF INFECTION. - Goals Goal 1:: DECREASE C/O LOW BACK PAIN Goal Time Frame: 4-6 Weeks Goal 2:: IMPROVE LIFTING, WALKING, SITTING, STANDING, SLEEP, TRAVELING, HOMEMAKING FUNCTION Goal Time Frame: 4-6 Weeks Goal 3:: INSTRUCT IN PROPHYLAXIS Goal Time Frame: 4-6 Weeks - Rehabilitation Potential Rehabilitation Potential: Good - Anticipated Interventions Patient/Client Instruction: Educate patient on: Condition, Plan of Care, Risk Factors, Benefits of Fitness Program For the Purpose of:: To improve self management Therapeutic Exercise to Include: Strength training, Body mechanics, Postural training, Flexibilty training, Dynamic Lumbar Stabilization For the Purpose of:: To increase ROM, To improve muscle performance and motor function, To increase tolerance to activity/condition/position, To improve ability of physical actions for home/community/work/leisure, To improve gait and locomotor functions Other: PATIENT PREFERS LAND VS WATER EX AT THIS POINT. Thank you for the opportunity to evaluate your patient. For Medicare and Medicare HMO plans, please review the plan of care and approve it. It will need to be FAXED BACK to us at [phone] for Medicare purposes. For Medicare only, by signing this I certify the plan of care. Please let me know if there are questions or concerns regarding this plan of care. Physician Signature: Date:
--- NOTE | 2019-08-05 13:27 | HP.PTDCSUM ---
HP - PT D/C Summary It has been my pleasure to treat MICHELLE MCGEE referred by Holli Rankin MD, with the diagnosis of S/P L3-S1 LUMBAR LAMINECTOMY/FUSION for a total of 9 visit(s). Discharge Date: 06/21/19 Please see the following information for a summary of their discharge status. - Subjective Subjective: PATIENT REPORTS SHE IS DOING GOOD. SHE STATES SHE IS READY TO GET BACK TO MOWING HER YARD WHEN NEEDED. SHE REPORTS SHE CAN WALK FURTHER AND DO EVERYTHING BETTER. SHE REPORTS SHE CAN DRIVE WHEREVER SHE WANTS TO GO. SHE REPORTS SHE REALLY DOESN'T HAVE MUCH PAIN AT ALL. PATIENT WOULD LIKE TO STOP FORMAL THERAPY AT THIS POINT. - Pain Midline Lumbar Pain Intensity (Out of 10): 1 right shldr Pain Intensity (Out of 10): 3 L hip Pain Intensity (Out of 10): 2 - Overall Improvement % Improvement: 95 - Objective Objective/Function: PATIENT WAS SEEN TODAY FOR RE-ASSESSMENT OF PROGRESS TOWARD THE SET PT GOALS AND THE NEED FOR FURTHER PHYSICAL THERAPY VS READINESS FOR DISCHARGE. SHE HAS DONE GREAT WITH PHYSICAL THERAPY AND IS APPROPRIATE FOR DISCHARGE. UPON EXAM TODAY: INDEP GAIT INTO PT WITH GOOD CADANCE, NO AD'S AND NO LOB. Motor deficit: YASMINE LE'S GROSSLY 5/5 WITH MMT'ING. Sensory deficit: YASMINE LE LIGHT TOUCH SENSATION INTACT AND SYMMETRICAL. ROM deficit: TIGHT YASMINE HIP FLEXORS, HS'S AND GASTROC SOLEUS COMPLEX'S. Reflexes: NT. Dural Signs: NEGATIVE YASMINE LE'S. Lumbar mvmt loss: flex - NIL. ext - MOD TO JORGE. R SG - MOD. L SG - MOD. PATIENT DENIES INCREASED PAIN WITH LUMBAR ROM TESTING. Core strength: POOR. Palpation: NO ACUTE TENDERNESS. INCISION LOOKS GOOD WITHOUT ANY SIGNS OF INFECTION. - Goals Goal 1:: DECREASE C/O LOW BACK PAIN Goal Progress: Goal Met Goal 2:: IMPROVE LIFTING, WALKING, SITTING, STANDING, SLEEP, TRAVELING, HOMEMAKING FUNCTION Goal Progress: Goal Met Goal 3:: INSTRUCT IN PROPHYLAXIS Goal Progress: Goal Met - Plan Plan: D/C. PATIENT AGREEABLE. - D/C Information If there are questions or concerns regarding this patient's physical therapy, please feel free to call me at [phone]. Thank you for the referral of this patient. Sincerely, Brooke Crowell, PT, Cert MDT
== END 2019-06-21 19:00 | disposition home or self-care (01) ==
LOC: PT 09:30
PROVIDERS: Family Provider Family Medicine; PCP Family Medicine; Referring Provider Orthopaedic Surgery; Visit Provider Orthopaedic Surgery
DX: Z98.1 Arthrodesis status (principal)
CPT/HCPCS: 97110; 97162; 97164; 97530

== ENCOUNTER → 2019-08-09 10:06 | Outpatient (CLI) | payer MEDICARE, MEDICAID, SELFPAY ==
[2019-05-10 09:58] VITALS: BMI 40.6
--- NOTE | 2019-08-09 10:08 | RAD_ITS ---
STUDY: X-RAY - LUMBAR SPINE REASON FOR EXAM: Female, 68 years old. pain TECHNIQUE: 2 view(s) of the lumbar spine were obtained. COMPARISON: Prior study of 05/10/2019 FINDINGS: Normal lumbar lordosis. There is no substantial scoliosis. There is a normal alignment of the vertebrae. There are posterior spinal fusion changes with rods and interpeduncular screws from L3 to S1. Status post laminectomy changes of L4 and L5 are seen. There is a disc spacer at the L4-5 level. There is narrowing of the L3-4 and L4-5 disc spaces. There are calcified plaques of the abdominal aorta. RAD/Lumbar Spine 2 or 3 Views IMPRESSION: Postsurgical changes of the lumbar spine stable in the interval. Status post laminectomy changes of L4 and L5. Disc spacers seen at the L4-5 level. Narrowing of the L3-4 and L4-5 levels. Electronically Signed: Mark Franco MD at 23:58 EDT , Service support ,
== END ==
PROVIDERS: PCP Family Medicine; Referring Provider Orthopaedic Surgery; Visit Provider Orthopaedic Surgery
DX: Z98.1 Arthrodesis status (principal)
CPT/HCPCS: 72100

== ENCOUNTER → 2019-09-19 12:00 | Outpatient (CLI) | payer MEDICARE, MEDICAID, SELFPAY ==
[2019-08-09 10:18] VITALS: BMI 40.6
[2019-09-19 14:56] LABS: Absolute Lymphocyte Count 1.42 X10^3/uL (0.83-4.51); Absolute Neutrophil Count 3.6 X10^3/uL (2.0-7.7); Basophil# 0.04 X10^3/uL; Basophil% 0.7 % (0-1); Eosinophil# 0.35 X10^3/uL; Eosinophils% 5.9 % (0-5); Hematocrit 41.8 % (37-47); Hemoglobin 12.9 g/dL (12.0-15.0); Lymphocyte # 1.42 X10^3/ul (4.0); Lymphocyte % 24.1 % (19-41); Mean Corp Hgb Conc 30.9 g/dL (32-36); Mean Corpuscular Hgb 27.9 pg (27.0-32.0); Mean Corpuscular Volume 90.3 fL (81-99); Mean Platelet Vol. 10.3 fl (6.2-12.0); Monocyte% 8.5 % (0-10); NRBC Flagged by Analyzer 0 % (0-5); Neutrophil # 3.58 X10^3/uL (2.7-7.7); Neutrophil % 60.6 % (47-70); Platelet Count 310 K/mm3 (150-450); RBC Distribution Width CV 13.7 % (11.6-14.6); RBC Distribution Width SD 44.7 fl (35.1-43.9); Red Blood Count 4.63 M/mm3 (4.2-5.4); White Blood Count 5.9 K/mm3 (4.4-11.0)
[2019-09-19 15:12] LABS: Microalbumin,Random Urine 21.8 mg/L (NO RANGE EST.); Microalbumin:Creatinine Ratio 13.1 mg/g CRE (<30 mg/g CRE)
[2019-09-19 15:17] LABS: ALB/GLOB Ratio 0.9 RATIO (0.9-2.4); AST(SGOT) 25 U/L (15-37); Alanine Aminotransfer ALT/SGPT 32 U/L (13-56); Albumin, Serum 3.8 g/dL (3.2-5.0); Alkaline Phosphatase 68 U/L (45-117); Anion Gap 6 (5-15); BUN 16 mg/dL (7-18); BUN/Creat Ratio 17.4 RATIO (10-20); Calcium,Total 9.3 mg/dL (8.5-10.1); Chloride 106 mmol/L (98-107); Cholesterol 152 mg/dL (200); Creatinine, Serum 0.92 mg/dL (0.55-1.02); EST Glomerular Filtration Rate 65 mL/min (>60); Est Glom Filt Rate - Afr Amer 78 mL/min (>60); Globulin 4.1 g/dL (2.2-4.2); Glucose 127 mg/dL (74-106); High Density Lipoprotein 70 mg/dL; Potassium 3.9 mmol/L (3.5-5.1); Protein, Total 7.9 g/dL (6.4-8.2); Sodium Level 139 mmol/L (136-145); Thyroid Stim Hormone (TSH) 3.23 uIU/mL (0.358-3.74); Triglycerides 116 mg/dL; Very Low Density Lipoprotein 23 mg/dL (5-40)
== END ==
PROVIDERS: PCP Family Medicine; Referring Provider Family Medicine; Visit Provider Family Medicine
DX: E11.9 Type 2 diabetes mellitus without complications (principal)
CPT/HCPCS: 36415; 80053; 80061; 82043; 82570; 84443; 85025

== ENCOUNTER → 2020-01-06 11:41 | Outpatient (CLI) | payer MEDICARE, MEDICAID, SELFPAY ==
[2019-08-09 10:18] VITALS: BMI 40.6
[2020-01-06 15:05] LABS: Absolute Lymphocyte Count 1.58 X10^3/uL (0.83-4.51); Absolute Neutrophil Count 3.8 X10^3/uL (2.0-7.7); Basophil# 0.02 X10^3/uL; Basophil% 0.3 % (0-1); Eosinophil# 0.19 X10^3/uL; Eosinophils% 3.1 % (0-5); Hematocrit 42.4 % (37-47); Hemoglobin 12.8 g/dL (12.0-15.0); Lymphocyte # 1.58 X10^3/ul (4.0); Lymphocyte % 25.5 % (19-41); Mean Corp Hgb Conc 30.2 g/dL (32-36); Mean Corpuscular Hgb 27.9 pg (27.0-32.0); Mean Corpuscular Volume 92.6 fL (81-99); Mean Platelet Vol. 10.4 fl (6.2-12.0); Monocyte% 9.7 % (0-10); NRBC Flagged by Analyzer 0 % (0-5); Neutrophil % 61.2 % (47-70); Platelet Count 323 K/mm3 (150-450); RBC Distribution Width CV 14.1 % (11.6-14.6); RBC Distribution Width SD 47.6 fl (35.1-43.9); Red Blood Count 4.58 M/mm3 (4.2-5.4); White Blood Count 6.2 K/mm3 (4.4-11.0)
[2020-01-06 15:34] LABS: AST(SGOT) 38 U/L (15-37); Alanine Aminotransfer ALT/SGPT 37 U/L (13-56); Albumin, Serum 4.1 g/dL (3.2-5.0); Alkaline Phosphatase 62 U/L (45-117); Anion Gap 6 (5-15); BUN 16 mg/dL (7-18); BUN/Creat Ratio 18.8 RATIO (10-20); Calcium,Total 9.5 mg/dL (8.5-10.1); Chloride 105 mmol/L (98-107); Creatinine, Serum 0.85 mg/dL (0.55-1.02); EST Glomerular Filtration Rate 70 mL/min (>60); Est Glom Filt Rate - Afr Amer 85 mL/min (>60); Globulin 4.2 g/dL (2.2-4.2); Glucose 93 mg/dL (74-106); Potassium 4.5 mmol/L (3.5-5.1); Protein, Total 8.3 g/dL (6.4-8.2); Sodium Level 138 mmol/L (136-145); Thyroid Stim Hormone (TSH) 3.03 uIU/mL (0.358-3.74)
== END ==
PROVIDERS: PCP Family Medicine; Referring Provider Family Medicine; Visit Provider Family Medicine
DX: R42 Dizziness and giddiness (principal); R25.2 Cramp and spasm
CPT/HCPCS: 36415; 80053; 84443; 85025

== ENCOUNTER → 2020-10-08 09:02 | Outpatient (CLI) | payer MEDICARE, MEDICAID, SELFPAY ==
[2020-02-07 09:46] VITALS: BMI 40.6
[2020-10-08 10:04] LABS: Absolute Lymphocyte Count 1.46 X10^3/uL (0.83-4.51); Absolute Neutrophil Count 2.9 X10^3/uL (2.0-7.7); Basophil# 0.03 X10^3/uL; Basophil% 0.6 % (0-1); Eosinophil# 0.19 X10^3/uL; Eosinophils% 3.8 % (0-5); Hematocrit 42.2 % (37-47); Lymphocyte # 1.46 X10^3/ul (0.83-4.51); Mean Corp Hgb Conc 30.8 g/dL (32-36); Mean Corpuscular Volume 90.9 fL (81-99); Mean Platelet Vol. 9.8 fl (6.2-12.0); Monocyte# 0.45 X10^3/uL; Monocyte% 8.9 % (0-10); NRBC Flagged by Analyzer 0 % (0-5); Neutrophil # 2.89 X10^3/uL (2.7-7.7); Neutrophil % 57.5 % (47-70); Platelet Count 298 K/mm3 (150-450); RBC Distribution Width CV 13.6 % (11.6-14.6); RBC Distribution Width SD 45.1 fl (35.1-43.9); Red Blood Count 4.64 M/mm3 (4.2-5.4)
[2020-10-08 10:23] LABS: Hemoglobin A1c 6.3 % (3.8-5.6)
[2020-10-08 10:48] LABS: ALB/GLOB Ratio 0.9 RATIO (0.9-2.4); AST(SGOT) 25 U/L (15-37); Alanine Aminotransfer ALT/SGPT 30 U/L (13-56); Albumin, Serum 3.5 g/dL (3.2-5.0); Alkaline Phosphatase 60 U/L (45-117); Anion Gap 3 (5-15); BUN 16 mg/dL (7-18); BUN/Creat Ratio 19.3 RATIO (10-20); Calcium,Total 8.8 mg/dL (8.5-10.1); Chloride 106 mmol/L (98-107); Cholesterol 191 mg/dL (200); Creatinine, Serum 0.83 mg/dL (0.55-1.02); EST Glomerular Filtration Rate 72 mL/min (>60); Est Glom Filt Rate - Afr Amer 88 mL/min (>60); Glucose 139 mg/dL (74-106); High Density Lipoprotein 80 mg/dL; Potassium 4.2 mmol/L (3.5-5.1); Protein, Total 7.5 g/dL (6.4-8.2); Sodium Level 137 mmol/L (136-145); Thyroid Stim Hormone (TSH) 3.41 uIU/mL (0.358-3.74); Triglycerides 110 mg/dL; Very Low Density Lipoprotein 22 mg/dL (5-40)
[2020-10-08 10:52] LABS: Microalbumin,Random Urine 49.3 mg/L (NO RANGE EST.); Microalbumin:Creatinine Ratio 39.1 mg/g CRE (<30 mg/g CRE)
== END ==
PROVIDERS: PCP Family Medicine; Referring Provider Family Medicine; Visit Provider Family Medicine
DX: M79.7 Fibromyalgia (principal); E11.69 Type 2 diabetes mellitus with other specified complication
CPT/HCPCS: 36415; 80053; 80061; 82043; 82570; 83036; 84443; 85025

== ENCOUNTER → 2021-02-12 09:46 | Outpatient (CLI) | payer MEDICARE, MEDICAID, SELFPAY ==
--- NOTE | 2021-02-12 09:51 | BI_ITS ---
MAMMOGRAPHY - BILATERAL SCREENING REASON FOR EXAM: Female, 70 years old. Routine annual screening examination. PERTINENT HISTORY: Non-contributory. TECHNIQUE: Digital bilateral breast sakshi (3D mammographic acquisition) in the CC and MLO projections. 2-D mediolateral oblique (MLO) and craniocaudad (CC) views of both breasts were obtained. CAD: Full Field Digital Mammography with Computer Added Detection was performed. COMPARISON: Comparison is made with prior examination dated 08/14/2017. FINDINGS: Breast Composition: The breasts are almost entirely fatty. There are no dominant masses or suspicious calcifications. There are 2 small calcified nodules in the retroareolar region of the right breast. No other significant abnormalities are identified. There has been no significant change since the prior study. BI/SCRN MAMM (CAD)W/SAKSHI BILAT IMPRESSION: Stable bilateral screening mammogram. Yearly follow-up mammogram recommended. (A) ASSESSMENT CATEGORY: BIRADS Category 2: Benign. A letter regarding these results will be sent to the patient by the facility within 30 days. Approximately 10% of breast cancers are not detected by mammography. A normal mammogram should not delay biopsy of a clinically suspicious abnormality. [id number] Electronically Signed: Anoop Samayoa MD at 11:27 EDT , Service support ,
--- NOTE | 2021-02-12 10:32 | BD_ITS ---
STUDY: DUAL ENERGY X-RAY ABSORPTIOMETRY / DXA REASON FOR EXAM: Female, 70 years old. 733.00OsteoporosisBONE DENSITY REASON FOR EXAM TECHNIQUE: Bone Mineral Density (BMD) measurements of lumbar spine and bilateral hips were obtained. COMPARISON: Comparison is made with prior study dated 05/11/2018. FINDINGS: Lumbar Spine (L1-L4): g/cm2 (1.013) / T-score (0.3) / Z-score (2.2) Findings are suggestive of normal bone density with a low fracture risk. Left Femur Total: g/cm2 (0.985) / T-score (0.3) / Z-score (1.8) Left Femoral Neck: g/cm2 (0.844) / T-score (0.0) / Z-score (1.7) Right Femur Total: g/cm2 (1.029) / T-score (0.7) / Z-score (2.2) Right Femoral Neck: g/cm2 (0.839) / T-score (-0.1) / Z-score (1.7) The T-Scores on the most recent prior examination were: Lumbar Spine (L1-L4): There has been improvement of bone density since the previous examination. Left Femur Total: which represents a worsening of 5%. Right Femur Total: which represents a worsening of 0.5%. BD/Dexa Bone Density Study IMPRESSION: The patient is considered normal as outlined below according to World Juan Organization (WHO) criteria with a low fracture risk. There has been worsening of bone density since the previous examination. Reference Information: The T-score is the number of standard deviations above or below the standard which is normal for young adults at their peak bone mineral density. The World Health Organization (WHO) interprets the T-scores as follows: Above -1 Normal bone density Between -1 and -2.5 Osteopenia Equal to / or below -2.5 Osteoporosis As a practical clinical guideline, osteopenia may be graded as follows: Mild -1 through -1.5 Moderate -1.6 through -2.0 Severe -2.1 through -2.4 The Z-score is the number of standard deviations above or below age-matched controls. A Z-score of less than -1.5 would be considered abnormal. References: 1. NIH Osteoporosis and Related Bone Diseases www osteo.org 2. International Society for Clinical Densitometry www iscd.org 3. National Osteoporosis Foundation www nof.org Electronically Signed: Anoop Samayoa MD at 13:04 EDT , Service support ,
== END ==
PROVIDERS: PCP Family Medicine; Referring Provider Family Medicine; Visit Provider Family Medicine
DX: M81.0 Age-related osteoporosis without current pathological fracture (principal); Z12.31 Encounter for screening mammogram for malignant neoplasm of breast
CPT/HCPCS: 77063; 77067; 77080

== ENCOUNTER → 2021-04-05 09:19 | Outpatient (CLI) | payer MEDICARE, MEDICAID, SELFPAY ==
[2021-04-05 12:21] LABS: Absolute Lymphocyte Count 1.49 X10^3/uL (0.83-4.51); Absolute Neutrophil Count 3.1 X10^3/uL (2.0-7.7); Basophil# 0.03 X10^3/uL; Basophil% 0.6 % (0-1); Eosinophil# 0.22 X10^3/uL; Eosinophils% 4.2 % (0-5); Hematocrit 40.6 % (37-47); Hemoglobin 12.9 g/dL (12.0-15.0); Lymphocyte # 1.49 X10^3/ul (0.83-4.51); Lymphocyte % 28.1 % (19-41); Mean Corp Hgb Conc 31.8 g/dL (32-36); Mean Corpuscular Hgb 28.7 pg (27.0-32.0); Mean Corpuscular Volume 90.2 fL (81-99); Mean Platelet Vol. 10.1 fl (6.2-12.0); Monocyte# 0.47 X10^3/uL; Monocyte% 8.9 % (0-10); NRBC Flagged by Analyzer 0 % (0-5); Neutrophil # 3.07 X10^3/uL (2.7-7.7); Neutrophil % 57.8 % (47-70); Platelet Count 317 K/mm3 (150-450); RBC Distribution Width CV 13.7 % (11.6-14.6); RBC Distribution Width SD 44.9 fl (35.1-43.9); White Blood Count 5.3 K/mm3 (4.4-11.0)
[2021-04-05 12:45] LABS: ALB/GLOB Ratio 0.8 RATIO (0.9-2.4); AST(SGOT) 26 U/L (15-37); Alanine Aminotransfer ALT/SGPT 32 U/L (13-56); Albumin, Serum 3.2 g/dL (3.2-5.0); Alkaline Phosphatase 61 U/L (45-117); Anion Gap 7 (5-15); BUN 19 mg/dL (7-18); BUN/Creat Ratio 25.1 RATIO (10-20); Calcium,Total 8.6 mg/dL (8.5-10.1); Chloride 105 mmol/L (98-107); Creatinine, Serum 0.76 mg/dL (0.55-1.02); EST Glomerular Filtration Rate 81 mL/min (>60); Est Glom Filt Rate - Afr Amer 98 mL/min (>60); Globulin 4.2 g/dL (2.2-4.2); Glucose 148 mg/dL (74-106); Potassium 4.1 mmol/L (3.5-5.1); Protein, Total 7.4 g/dL (6.4-8.2); Sodium Level 138 mmol/L (136-145)
[2021-04-05 12:47] LABS: Hemoglobin A1c 6.6 % (3.8-5.6)
[2021-04-05 12:52] LABS: Microalbumin,Random Urine 15.5 mg/L (NO RANGE EST.); Microalbumin:Creatinine Ratio 14.6 mg/g CRE (<30 mg/g CRE)
== END ==
PROVIDERS: PCP Family Medicine; Referring Provider Family Medicine; Visit Provider Family Medicine
DX: M48.061 Spinal stenosis, lumbar region without neurogenic claudication (principal); E11.69 Type 2 diabetes mellitus with other specified complication
CPT/HCPCS: 36415; 80053; 82043; 82570; 83036; 85025

== ENCOUNTER 2021-07-02 10:03 | Outpatient (CLI) | payer MEDICARE, MEDICAID, SELFPAY ==
[2021-07-02 12:50] LABS: ALB/GLOB Ratio 0.9 RATIO (0.9-2.4); AST(SGOT) 27 U/L (15-37); Alanine Aminotransfer ALT/SGPT 32 U/L (13-56); Albumin, Serum 3.5 g/dL (3.2-5.0); Alkaline Phosphatase 60 U/L (45-117); Anion Gap 4 (5-15); BUN 16 mg/dL (7-18); BUN/Creat Ratio 18.7 RATIO (10-20); Calcium,Total 8.6 mg/dL (8.5-10.1); Chloride 106 mmol/L (98-107); Creatinine, Serum 0.86 mg/dL (0.55-1.02); EST Glomerular Filtration Rate 70 mL/min (>60); Est Glom Filt Rate - Afr Amer 84 mL/min (>60); Globulin 4.1 g/dL (2.2-4.2); Glucose 153 mg/dL (74-106); Potassium 4.3 mmol/L (3.5-5.1); Protein, Total 7.6 g/dL (6.4-8.2); Sodium Level 137 mmol/L (136-145)
[2021-07-02 13:00] LABS: Microalbumin,Random Urine 56.3 mg/L (NO RANGE EST.); Microalbumin:Creatinine Ratio 23.7 mg/g CRE (<30 mg/g CRE)
[2021-07-02 13:03] LABS: Hemoglobin A1c 6.5 % (3.8-5.6)
== END 2021-07-02 23:59 | disposition short-term general hospital (02) ==
PROVIDERS: PCP Family Medicine; Referring Provider Family Medicine; Visit Provider Family Medicine
DX: E11.69 Type 2 diabetes mellitus with other specified complication (principal); I10 Essential (primary) hypertension
CPT/HCPCS: 36415; 80053; 82043; 82570; 83036

== ENCOUNTER → 2021-10-24 | Outpatient (CLI) | payer MEDICARE, MEDICAID, SELFPAY ==
[2021-10-24 10:00] LABS: Absolute Lymphocyte Count 1.52 X10^3/uL (0.83-4.51); Absolute Neutrophil Count 2.9 X10^3/uL (2.0-7.7); Basophil# 0.02 X10^3/uL; Basophil% 0.4 % (0-1); Eosinophil# 0.21 X10^3/uL; Eosinophils% 4.1 % (0-5); Hematocrit 42.2 % (37-47); Hemoglobin 13.1 g/dL (12.0-15.0); Lymphocyte # 1.52 X10^3/ul (0.83-4.51); Lymphocyte % 29.3 % (19-41); Mean Corpuscular Hgb 28.4 pg (27.0-32.0); Mean Corpuscular Volume 91.3 fL (81-99); Mean Platelet Vol. 10.2 fl (6.2-12.0); Monocyte# 0.56 X10^3/uL; Monocyte% 10.8 % (0-10); NRBC Flagged by Analyzer 0 % (0-5); Neutrophil # 2.85 X10^3/uL (2.7-7.7); Platelet Count 303 K/mm3 (150-450); RBC Distribution Width CV 14.2 % (11.6-14.6); RBC Distribution Width SD 47.8 fl (35.1-43.9); Red Blood Count 4.62 M/mm3 (4.2-5.4); White Blood Count 5.2 K/mm3 (4.4-11.0)
[2021-10-24 10:32] LABS: Hemoglobin A1c 6.7 % (3.8-5.6)
[2021-10-24 10:34] LABS: Vitamin D,25 Hydroxy 41.5 ng/mL
[2021-10-24 10:38] LABS: Erythrocyte Sedimentation Rate 26 mm/hr (0-30)
[2021-10-24 10:52] LABS: ALB/GLOB Ratio 0.9 RATIO (0.9-2.4); AST(SGOT) 30 U/L (15-37); Alanine Aminotransfer ALT/SGPT 41 U/L (13-56); Albumin, Serum 3.7 g/dL (3.2-5.0); Alkaline Phosphatase 57 U/L (45-117); Anion Gap 7 (5-15); BUN 15 mg/dL (7-18); BUN/Creat Ratio 17.5 RATIO (10-20); Calcium,Total 9.5 mg/dL (8.5-10.1); Chloride 106 mmol/L (98-107); Creatinine, Serum 0.86 mg/dL (0.55-1.02); EST Glomerular Filtration Rate 70 mL/min (>60); Est Glom Filt Rate - Afr Amer 84 mL/min (>60); Globulin 4.1 g/dL (2.2-4.2); Glucose 157 mg/dL (74-106); Potassium 4.4 mmol/L (3.5-5.1); Protein, Total 7.8 g/dL (6.4-8.2); Sodium Level 138 mmol/L (136-145)
== END | disposition home or self-care (01) ==
LOC: MFPLAB 08:50
PROVIDERS: PCP Family Medicine; Referring Provider Family Medicine; Visit Provider Family Medicine
DX: M48.061 Spinal stenosis, lumbar region without neurogenic claudication (principal); E11.69 Type 2 diabetes mellitus with other specified complication; E55.9 Vitamin D deficiency, unspecified
CPT/HCPCS: 36415; 80053; 82306; 83036; 85025; 85652

== ENCOUNTER 2021-11-26 10:00 | Outpatient (RCR) | payer MEDICARE, MEDICAID, SELFPAY ==
--- NOTE | 2021-10-25 14:50 | HP.PTEVAL_ITS ---
Patient's Visit Information MICHELLE MCGEE is a 71 year old F referred to Physical Therapy by Dr. Joseph Armstrong MD with a diagnosis of Leg weakness, FM, spinal stenosis. Date of Evaluation: 10/25/21 Physical Therapist: Joseph Arana, DPT, OCS, CSCS - Visit Plan Frequency: 2x /Week Duration: 4-6 Weeks Plan: 2x/week for 4-6 weeks for. 1. LE. core and postural ex for patient who wishes to progress to gym program. 2. rollout and stretch quads and HS. 3. NS focus - Subjective Everything hurts and legs feel weak. I stumble around. Had surgery years ago (describes fusion)due to back pain and was falling. No recent falls but has to be careful in morning and sit for a second. Uses cane to get around but left it in the car today. All of her joints hurt as she has OA and psoriatic arthritis. Walking is main exercise. Has Fibro myalgia, nO regular exercises.[place] steps to enter. Back and knees can hurt at rest but eveerything is worse with work. lives with mom and steps to enter with railing, no problem with steps. Basic ADLs are getting done. Not employed. Can go to grocery store with her sister and legs will get weak and tired. Gets tired easy and is SOB after ambulating back to eval room 200 feet. L leg numbness for a long time from LB. - Pain all over Pain Intensity (Out of 10): 0 Pain Intensity Range: 0, 7 - Objective Walks i with flat feet and stiff knees, no aD required. Trasnfers I, steps one rail reciprocal and I. Very tired adn SOB after steps. Quads and HS max tight with -40 90/90 test. They also hurt and cramp often today. LB AROM ext max limited, SB mod limited, flexion mod limited, some pain with extension centrally. incision is in lumbar area and healed well without excessive palpable scar tissure. Posture is forward head and kyphotic T/S and flat L/S lordosis. reflexes 1/3 patella and achilles B. Sensation LE WNL to gross lgiht touch in B LE. Strength core 3/5 with ahrd time rolling and sitting up. LE strength 4 in ankles, 4- knees and 3 in hip abd and ext. No myotomal problems. - slump. - slr - Balance/Special Test Scores Oswestry Low Back Score: 20 - Goals Goal 1:: I appropriate gym/home based HEP for posture, core, LE strength and stretching Goal Time Frame: 4-6 Weeks Goal 2:: Pain in overall body 3/10 at worst and 50% improved Goal Time Frame: 4-6 Weeks Goal 3:: Steps and walk 200 feet without SOB Goal Time Frame: 4-6 Weeks Goal 4:: oswestry score 15 or less. Goal Time Frame: 4-6 Weeks - Rehabilitation Potential Physical Therapy Diagnosis: Weakness limiting mobility. Rehabilitation Potential: Good - Anticipated Interventions Patient/Client Instruction: Educate patient on: Condition, Plan of Care For the Purpose of:: To decrease pain, To decrease swelling/inflammation, To improve muscle performance and motor function, To improve ability of physical actions for home/community/work/leisure Therapeutic Exercise to Include: Strength training, Postural training, Flexibilty training, Passive ROM, Active ROM, Dynamic Lumbar Stabilization For the Purpose of:: To decrease pain, To increase ROM, To improve muscle performance and motor function, To increase tolerance to activity/condition/position, To improve ability of physical actions for home/community/work/leisure Manual Therapy Techniques to Include: Soft tissue mobilization For the Purpose of:: To decrease pain, To increase ROM Thank you for the opportunity to evaluate your patient. For Medicare and Medicare HMO plans, please review the plan of care and approve it. It will need to be FAXED BACK to us at [phone] for Medicare purposes. For Medicare only, by signing this I certify the plan of care. Please let me know if there are questions or concerns regarding this plan of care. Physician Signature: Date:_
--- NOTE | 2021-11-26 10:44 | HP.PTDCSUM ---
It has been my pleasure to treat MICHELLE MCGEE referred by Dr. Joseph Armstrong MD, with the diagnosis of Leg weakness, FM, spinal stenosis for a total of 9 visit(s). Discharge Date: 11/26/21 Please see the following information for a summary of their discharge status. Subjective: Doing alot better. No pain in legs anymore and can walk with confidence. No pain lately. Sleeping OK. Doing exercises at home which challenge her daily. Gym exercises really challenge her. Will not start in gym right away. Ready to be done with PT. To doctor in 3 weeks. Balance feels good. all over Pain Intensity (Out of 10): 0 % Improvement: 90 Objective/Function: Good walking without antalgia. Steps with one rail reciprocally and no SOB. Moving with confidence. Ready to be done with PT. Goal 1:: I appropriate gym/home based HEP for posture, core, LE strength and stretching Goal Progress: Goal Met Goal 2:: Pain in overall body 3/10 at worst and 50% improved Goal Progress: Goal Met Goal 3:: Steps and walk 200 feet without SOB Goal Progress: Goal Met Goal 4:: oswestry score 15 or less. Goal Progress: Goal Met Plan: d/c to HEP Discharge Comments: Doing well and will continue via HEP and f/u with doctor in December or prior if needed. If there are questions or concerns regarding this patient's physical therapy, please feel free to call me at [phone]. Thank you for the referral of this patient. Sincerely, Joseph Arana, DPT, OCS, CSCS Balance/Gait/Functional tests - Balance/Special Test Scores Oswestry Low Back Score: 7
== END 2021-11-26 10:51 | disposition home or self-care (01) ==
LOC: PT 10:00
PROVIDERS: PCP Family Medicine; Referring Provider Family Medicine; Visit Provider Family Medicine
DX: M48.00 Spinal stenosis, site unspecified (principal); R29.898 Other symptoms and signs involving the musculoskeletal system; M79.7 Fibromyalgia
CPT/HCPCS: 97110; 97162; 97164

== ENCOUNTER → 2022-02-10 | Outpatient (CLI) | payer MEDICARE, MEDICAID, SELFPAY ==
[2022-02-10 15:39] LABS: ALB/GLOB Ratio 0.8 RATIO (0.9-2.4); AST(SGOT) 24 U/L (15-37); Alanine Aminotransfer ALT/SGPT 35 U/L (13-56); Albumin, Serum 3.4 g/dL (3.2-5.0); Alkaline Phosphatase 55 U/L (45-117); Anion Gap 8 (5-15); BUN 20 mg/dL (7-18); BUN/Creat Ratio 25.2 RATIO (10-20); Chloride 105 mmol/L (98-107); Creatinine, Serum 0.79 mg/dL (0.55-1.02); EST Glomerular Filtration Rate 76 mL/min (>60); Est Glom Filt Rate - Afr Amer 92 mL/min (>60); Globulin 4.2 g/dL (2.2-4.2); Glucose 121 mg/dL (74-106); Potassium 3.7 mmol/L (3.5-5.1); Protein, Total 7.6 g/dL (6.4-8.2); Sodium Level 140 mmol/L (136-145)
[2022-02-10 15:41] LABS: Hemoglobin A1c 6.9 % (3.8-5.6)
== END | disposition home or self-care (01) ==
LOC: MTLAB 12:51
PROVIDERS: PCP Family Medicine; Referring Provider Family Medicine; Visit Provider Family Medicine
DX: E11.69 Type 2 diabetes mellitus with other specified complication (principal)
CPT/HCPCS: 36415; 80053; 83036

== ENCOUNTER → 2022-02-17 | Outpatient (CLI) | payer MEDICARE, MEDICAID, SELFPAY ==
--- NOTE | 2022-02-17 09:49 | BI_ITS ---
MAMMOGRAPHY - BILATERAL SCREENING 3-D TOMOSYNTHESIS REASON FOR EXAM: Female, 71 years old. SCREENING PERTINENT HISTORY: No significant family history. TECHNIQUE: 2-D mammograms and 3-D Tomosynthesis of the breast (s) were performed. CAD was performed. COMPARISON: 02/12/2021 FINDINGS: The breast composition is composed of scattered fibroglandular density. Scattered benign calcifications are seen. No dense spiculated masses or suspicious microcalcifications are identified. No architectural distortion is identified. There is no skin thickening or retraction. There has been no significant change since the prior study. BI/SCRN MAMM (CAD)W/SAKSHI BILAT IMPRESSION: No mammographic signs of malignancy. Routine yearly mammograms recommended. ASSESSMENT CATEGORY: BIRADS Category 1: Negative. A letter regarding these results will be sent to the patient by the facility within 30 days. FOLLOW UP RECOMMENDATION: Yearly follow up mammogram recommended. (A) Approximately 10% of breast cancers are not detected by mammography. A normal mammogram should not delay biopsy of a clinically suspicious abnormality. Electronically Signed: Ba Warren MD at 10:28 EDT ,
== END | disposition home or self-care (01) ==
LOC: OPBI 09:47
PROVIDERS: PCP Family Medicine; Referring Provider Family Medicine; Visit Provider Family Medicine
DX: Z12.31 Encounter for screening mammogram for malignant neoplasm of breast (principal)
CPT/HCPCS: 77063; 77067

== ENCOUNTER → 2022-04-07 | Outpatient (CLI) | payer MEDICARE, MEDICAID, SELFPAY ==
[2022-04-07 10:02] LABS: Absolute Lymphocyte Count 1.28 X10^3/uL (0.83-4.51); Absolute Neutrophil Count 3.5 X10^3/uL (2.0-7.7); Basophil# 0.02 X10^3/uL; Basophil% 0.4 % (0-1); Eosinophil# 0.14 X10^3/uL; Eosinophils% 2.6 % (0-5); Hematocrit 41.3 % (37-47); Hemoglobin 13.3 g/dL (12.0-15.0); Lymphocyte # 1.28 X10^3/ul (0.83-4.51); Lymphocyte % 23.7 % (19-41); Mean Corp Hgb Conc 32.2 g/dL (32-36); Mean Corpuscular Hgb 29.6 pg (27.0-32.0); Mean Corpuscular Volume 91.8 fL (81-99); Mean Platelet Vol. 10.4 fl (6.2-12.0); Monocyte# 0.42 X10^3/uL; Monocyte% 7.8 % (0-10); NRBC Flagged by Analyzer 0 % (0-5); Neutrophil # 3.53 X10^3/uL (2.7-7.7); Neutrophil % 65.3 % (47-70); Platelet Count 271 K/mm3 (150-450); RBC Distribution Width CV 13.7 % (11.6-14.6); RBC Distribution Width SD 46.3 fl (35.1-43.9); White Blood Count 5.4 K/mm3 (4.4-11.0)
[2022-04-07 10:40] LABS: ALB/GLOB Ratio 0.9 RATIO (0.9-2.4); AST(SGOT) 22 U/L (15-37); Alanine Aminotransfer ALT/SGPT 39 U/L (13-56); Albumin, Serum 3.5 g/dL (3.2-5.0); Alkaline Phosphatase 58 U/L (45-117); Anion Gap 7 (5-15); BUN 13 mg/dL (7-18); BUN/Creat Ratio 15.8 RATIO (10-20); Calcium,Total 10.3 mg/dL (8.5-10.1); Chloride 106 mmol/L (98-107); Creatinine, Serum 0.82 mg/dL (0.55-1.02); EST Glomerular Filtration Rate 73 mL/min (>60); Est Glom Filt Rate - Afr Amer 88 mL/min (>60); Glucose 140 mg/dL (74-106); Potassium 4.3 mmol/L (3.5-5.1); Protein, Total 7.5 g/dL (6.4-8.2); Sodium Level 139 mmol/L (136-145)
[2022-04-07 10:48] LABS: Microalbumin,Random Urine 9.8 mg/L (NO RANGE EST.)
[2022-04-07 11:05] LABS: Hemoglobin A1c 6.3 % (3.8-5.6)
== END | disposition home or self-care (01) ==
LOC: MFPLAB 08:31
PROVIDERS: PCP Family Medicine; Referring Provider Family Medicine; Visit Provider Family Medicine
DX: E11.69 Type 2 diabetes mellitus with other specified complication (principal); E66.01 Morbid (severe) obesity due to excess calories; Z68.41 Body mass index [BMI] 40.0-44.9, adult
CPT/HCPCS: 36415; 80053; 82043; 82570; 83036; 85025

== ENCOUNTER → 2022-07-04 | Outpatient (CLI) | payer MEDICARE, MEDICAID, SELFPAY ==
[2022-07-04 09:57] LABS: Absolute Neutrophil Count 2.9 X10^3/uL (2.0-7.7); Basophil# 0.03 X10^3/uL; Basophil% 0.6 % (0-1); Eosinophil# 0.18 X10^3/uL; Eosinophils% 3.5 % (0-5); Hematocrit 42.5 % (37-47); Hemoglobin 12.9 g/dL (12.0-15.0); Lymphocyte % 30.7 % (19-41); Mean Corp Hgb Conc 30.4 g/dL (32-36); Mean Corpuscular Hgb 28.5 pg (27.0-32.0); Mean Corpuscular Volume 93.8 fL (81-99); Mean Platelet Vol. 9.7 fl (6.2-12.0); Monocyte# 0.54 X10^3/uL; Monocyte% 10.4 % (0-10); NRBC Flagged by Analyzer 0 % (0-5); Neutrophil # 2.85 X10^3/uL (2.7-7.7); Neutrophil % 54.6 % (47-70); Platelet Count 297 K/mm3 (150-450); RBC Distribution Width CV 13.7 % (11.6-14.6); RBC Distribution Width SD 46.4 fl (35.1-43.9); Red Blood Count 4.53 M/mm3 (4.2-5.4); White Blood Count 5.2 K/mm3 (4.4-11.0)
[2022-07-04 10:43] LABS: ALB/GLOB Ratio 0.9 RATIO (0.9-2.4); AST(SGOT) 39 U/L (15-37); Alanine Aminotransfer ALT/SGPT 46 U/L (13-56); Albumin, Serum 3.6 g/dL (3.2-5.0); Alkaline Phosphatase 56 U/L (45-117); Anion Gap 9 (5-15); BUN 20 mg/dL (7-18); BUN/Creat Ratio 21.9 RATIO (10-20); Calcium,Total 8.7 mg/dL (8.5-10.1); Chloride 104 mmol/L (98-107); Creatinine, Serum 0.91 mg/dL (0.55-1.02); EST Glomerular Filtration Rate 65 mL/min (>60); Est Glom Filt Rate - Afr Amer 78 mL/min (>60); Globulin 4.1 g/dL (2.2-4.2); Glucose 162 mg/dL (74-106); Potassium 4.1 mmol/L (3.5-5.1); Protein, Total 7.7 g/dL (6.4-8.2); Sodium Level 140 mmol/L (136-145)
[2022-07-04 10:51] LABS: Hemoglobin A1c 6.4 % (3.8-5.6)
== END | disposition home or self-care (01) ==
LOC: MTLAB 07:47
PROVIDERS: PCP Family Medicine; Referring Provider Family Medicine; Visit Provider Family Medicine
DX: E11.69 Type 2 diabetes mellitus with other specified complication (principal); M48.061 Spinal stenosis, lumbar region without neurogenic claudication
CPT/HCPCS: 36415; 80053; 83036; 85025

== ENCOUNTER 2022-09-06 14:50 | Emergency (ER) | payer MEDICARE, MEDICAID, SELFPAY ==
[2022-09-06 14:53] VITALS: BP 104/90; PULSE 83; RESP 16; TEMP 36.8; O2SAT 100; BMI 43.2
--- NOTE | 2022-09-06 15:37 | CT_ITS ---
STUDY: CT CERVICAL SPINE WITHOUT CONTRAST REASON FOR EXAM: Female, 71 years old. Injury/Pain RADIATION DOSAGE (If Supplied By Facility): CTDIvol = ( 33.35 ) mGy, DLP = ( 585.04 ) mGycm TECHNIQUE: High resolution transaxial imaging was performed without contrast material. Sagittal and coronal images were reconstructed. Individualized dose optimization techniques were used for this CT. COMPARISON: None FINDINGS: Normal craniovertebral junction. Normal anterior atlantoaxial articulation. Normal odontoid process. Normal cervical lordosis. Mild endplate degenerative changes and degenerative disc changes within the lower cervical spine with noted normal alignment. C2-3: Normal endplates. Normal disc height and morphology. Normal central canal and intervertebral neuroforamina. C3-4: Moderate bilateral facet arthropathy with mild bilateral foraminal narrowing. No significant disc space narrowing or spinal canal narrowing. C4-5: Preserved disc space is present present with uncovertebral joint arthropathy and facet arthropathy resulting in [id number] foraminal narrowing. C5-6: Degenerative disc changes in decreased disc space with no significant disc bulge or spinal canal narrowing. Left uncovertebral joint arthropathy with mild foraminal narrowing. C6-7: Degenerative disc changes and disc osteophyte complex with uncovertebral joint arthropathy resulting in mild bilateral foraminal narrowing. C7-T1: Normal endplates. Normal disc height and morphology. Normal central canal and intervertebral neuroforamina. Normal visualized soft tissue structures. CT/Spine Cervical without Contras IMPRESSION: Degenerative changes above with no evidence of acute fracture or dislocation. Continued neck pain recommend MRI imaging to exclude occult underlying findings. Electronically Signed: Jese Luke DO at 16:26 EDT ,
--- NOTE | 2022-09-06 15:37 | CT_ITS ---
STUDY: CT BRAIN WITHOUT CONTRAST REASON FOR EXAM: Female, 71 years old. trauma RADIATION DOSAGE (If Supplied By Facility): CTDIvol = ( 44.99 ) mGy, DLP = ( 711.75 ) mGycm TECHNIQUE: Transaxial CT imaging of the brain was performed without administration of intravenous contrast material. Individualized dose optimization techniques were used for this CT. COMPARISON: No relevant priors. FINDINGS: Normal soft tissue structures. Normal calvarium. There is mild cerebral atrophy with widening of the extra-axial spaces and ventricular dilatation. There are areas of decreased attenuation within the white matter tracts of the supratentorial brain, consistent with microvascular disease changes. Normal basal ganglia and thalami. Normal brainstem. Normal cerebellum. There is no intracranial hemorrhage. There are no findings of an acute ischemic infarction. Normal visualized paranasal sinuses. CT/Brain/Head without Contrast IMPRESSION: No evidence of acute intracranial bleed, mass or ischemia. Electronically Signed: Jese Luke DO at 16:22 EDT ,
--- NOTE | 2022-09-06 15:40 | EDS_ITS ---
HPI History of Present Illness Chief Complaint: Fall Informant: patient Narrative Narrative: Patient is a 71-year-old female with history of diabetes, hypertension hyperlipidemia as well as prior back surgery presenting for evaluation after fall. Patient states she was walking into [employer] and her foot hit the curb and she fell forward. Patient states she landed on her stomach. She is complaining of pain in her left shoulder/arm region but also has some mild neck pain. She states she thinks she did hit her face but lately. Feels that she also landed on her right knee. Is not any blood thinners. Denies any associated loss of consciousness. Was in her normal state of health before this fall. No other complaints at this time. [facility] Medical History Diabetes mellitus Hx of gallstones Hypertension Home Medications duloxetine 60 mg capsule,delayed release PO 90 days #90 caps 11/11/18 [History Last Taken Unknown] ergocalciferol (vitamin D2) 1,250 mcg (50,000 unit) capsule PO 84 days #12 caps 11/11/18 [History Last Taken Unknown] losartan 25 mg tablet PO 30 days #30 tabs 11/11/18 [History Last Taken Unknown] pravastatin 20 mg tablet PO 60 days #60 tabs 11/11/18 [History Last Taken Unknown] selenium 200 mcg tablet PO 90 days #45 tabs 11/11/18 [History Last Taken Unknown] metformin 500 mg tablet 1,000 mg PO 30 days 08/09/19 [History Last Taken Unknown] hydrocodone-acetaminophen 5-325mg 5mg-325mg 1 tab PO Q8H PRN pain 3 days #10 tabs 09/06/22 [Rx Last Taken Unknown] Allergy/AdvReac Type Severity Reaction Status Date / Time No Known Allergies Allergy Verified 09/06/22 14:50 Social History Smoking Status: Never smoker ROS ROS ED Constitutional Constitutional ED: Denies chills or fever(s) Eyes Eyes: Denies blurry vision or change in vision ENT ENT ED: Denies rhinorrhea or sore throat Cardiovascular Cardiovascular: Denies chest pain or palpitations Respiratory/Chest Respiratory/Chest: Denies cough Gastrointestinal Gastrointestinal: Denies nausea or vomiting Musculoskeletal Musculoskeletal: Reports neck pain and other Details: left shoulder and upper arm pain Integumentary Denies Abrasions or rash Neurologic Neurologic: Denies headache(s), paresthesias or weakness Psychiatric Psychiatric: Denies anxiety Hematologic/Lymphatic Hematologic/Lymphatic: Denies easy bleeding or easy bruising EXAM Physical Exam Const Vital Signs: 09/06/22 14:53 09/06/22 16:50 Temperature 98.3 F Temperature Source Temporal Pulse Rate 83 Respiratory Rate 16 Blood Pressure 104/90 H 136/73 H Blood Pressure Mean 94 94 Pulse Ox 100 Oxygen Delivery Method Room Air Positive well nourished and well developed General Appearance ED: well developed and NAD HEENT Reports TM's clear atraumatic Nose: Negative for septum abnormal Tympanic Membrane ED: Yes TM's clear Eyes PERRL and EOMs intact bilaterally Neck full ROM Neck Narrative: No midline tenderness step-off sign. Does have mild diffuse left sided neck pain General: tenderness Chest Wall inspection of chest normal and palpation of chest normal Resp normal respiratory effort and clear to auscultation bilaterally Cardio regular rhythm and no murmurs Rate: regular rate GI normal to inspection, nondistended, normoactive bowel sounds and non-tender Extremity Extremity Narrative: Decreased range of motion of the left shoulder secondary to pain. No obvious deformity. Tenderness palpation of the mid/proximal humerus. No bony tenderness of the elbow. No joint effusion appreciated. No wrist tenderness or deformity. Pelvis is stable. Normal range of motion of the hips. No bony tenderness of the knees. General Extremety ED: Negative for deformity General Extremity: Negative for deformity Neuro oriented x3, moves all extremities and no sensory deficits noted Alvaro Coma Scale: document GCS findings Spontaneous Obeys Commands Oriented 15 Sensorium / Orientation: alert Motor Exam: strength 5/5 throughout Psych mental status grossly normal Skin Skin Narrative: Very superficial small abrasion to the anterior aspect of the right knee. No bleeding associated with this. MDM MDM MDM Narrative Medical decision making narrative: Patient is evaluated for injuries after a fall. She is not any obvious deformity. She is complaining of neck pain and think she might of hit her head so a CT of the head and C-spine is obtained that she has distracting injury and is 71 years old. She is not have any focal neurologic deficits. CT of the brain and C-spine show degenerative changes but no evidence of acute fracture or acute intracranial bleed. X-rays of the shoulder and humerus obtained which shows no acute fracture or dislocation. This interpreted by myself as well as radiology. Patient is initially ordered dose of IM morphine but then states she gets loopy with that and is requesting something else. She is given a dose of IM fentanyl instead. Patient still having pain and is given a dose of Warren. Counseled on opioid- induced constipation. Counseled on risk of falls increased confusion with opioid pain medicine. Patient states her doctor told her she is not supposed to take NSAIDs. Patient informed of degenerative changes on imaging. Is given referral for orthopedics. Counseled return precautions. Encouraged follow-up with primary care doctor. Discharged home in stable condition. Radiography Diagnostic Testing: Clinical Impression(s) from Imaging Studies Brain CT 09/06/22 15:37 IMPRESSION: No evidence of acute intracranial bleed, mass or ischemia. Electronically Signed: Jese Luke DO at 16:22 EDT , Cervical Spine CT 09/06/22 15:37 IMPRESSION: Degenerative changes above with no evidence of acute fracture or dislocation. Continued neck pain recommend MRI imaging to exclude occult underlying findings. Electronically Signed: Jese Luke DO at 16:26 EDT , Humerus X-Ray 09/06/22 16:10 IMPRESSION: Demineralization with no evidence of acute fracture or dislocation. Electronically Signed: Jese Luke DO at 16:28 EDT , Shoulder X-Ray 09/06/22 16:10 IMPRESSION: Demineralization and degenerative changes as above with no evidence of acute fracture. Electronically Signed: Jese Luke DO at 16:29 EDT , Discharge Plan Triage Chief Complaint: Fall Other Complaint: Upper Extremity Injury ED Provider: Leatha Salgado Dx/Rx/DC Orders Clinical Impression: Fall from slip, trip, or stumble, Contusion of left shoulder, initial encounter, Abrasion of knee, right Instructions: ED Contusion, Upper Extremity, ED Mechanical Fall, ED Sling Prescriptions: New hydrocodone-acetaminophen 5-325 mg tablet 1 tab PO Q8H PRN (Reason: pain) 3 Days Qty: 10 0RF No Action selenium 200 mcg tablet PO 90 Days Qty: 45 losartan 25 mg tablet PO 30 Days Qty: 30 pravastatin 20 mg tablet PO 60 Days Qty: 60 Label Comments: take 1 tablet by mouth once daily WITH SUPPER ergocalciferol (vitamin D2) 50,000 unit capsule PO 84 Days Qty: 12 Label Comments: take 1 capsule by mouth every week for 12 WEEKS duloxetine 60 mg capsule,delayed release(DR/EC) PO 90 Days Qty: 90 metformin 500 mg tablet 1,000 mg PO 30 Days Primary Care Provider: Joseph Armstrong Referrals: Joseph Armstrong MD [Primary Care Provider] - Joo Grider DO [Med Staff - Active Staff] - 3-5 Days if not improving Activity Restrictions/Additional Instructions: While wearing the sling and do range of motion exercises with little circles of big circles as we discussed. Disposition Disposition: Home, Self Care Discharge Date/Time: 09/06/22 18:00
--- NOTE | 2022-09-06 16:10 | RAD_ITS ---
STUDY: X-RAY - LEFT HUMERUS REASON FOR EXAM: Female, 71 years old. Injury/Pain TECHNIQUE: 2 view(s) of the humerus. COMPARISON: None. FINDINGS: There is diffuse demineralization of the humerus. There is no demonstrated fracture or osseous destructive process. Mild heterotopic ossification along the mid humerus is noted. There is no demonstrated soft tissue abnormality. RAD/Humerus min 2 Views IMPRESSION: Demineralization with no evidence of acute fracture or dislocation. Electronically Signed: Jese Luke DO at 16:28 EDT ,
--- NOTE | 2022-09-06 16:10 | RAD_ITS ---
STUDY: X-RAY - LEFT SHOULDER REASON FOR EXAM: Female, 71 years old. Injury/Pain TECHNIQUE: 3 view(s) of the shoulder. COMPARISON: None. FINDINGS: There is moderate degenerative arthrosis of the glenohumeral articulation. There is degenerative arthrosis of the acromioclavicular joint without inferior osseous spur formation. Normal acromion. There is demineralization of the humerus and visualized osseous structures. The soft tissue structures are unremarkable. Normal visualized pulmonary apex. RAD/Shoulder min 2 Views IMPRESSION: Demineralization and degenerative changes as above with no evidence of acute fracture. Electronically Signed: Jese Luke DO at 16:29 EDT ,
[2022-09-06 16:50] VITALS: BP 136/73
[2022-09-06] MEDS: HYDROcodone Bitartrate/Apap 5/325 Tablet PO (17:56)
== END 2022-09-06 18:00 | disposition home or self-care (01) ==
PROVIDERS: Emergency Provider Emergency Medicine; PCP Family Medicine; Visit Provider Emergency Medicine
DX: S40.012A Contusion of left shoulder, initial encounter (principal); S80.211A Abrasion, right knee, initial encounter; W19.XXXA Unspecified fall, initial encounter
CPT/HCPCS: 70450; 72125; 73030; 73060; 99285

== ENCOUNTER 2022-10-20 12:00 | Outpatient (RCR) | payer MEDICARE, MEDICAID, SELFPAY ==
--- NOTE | 2022-09-25 13:02 | HP.PTEVAL ---
Patient's Visit Information MICHELLE MCGEE is a 72 year old F referred to Physical Therapy by Taye Castellanos PA-C with a diagnosis of L shoulderOA and biceps laceration. Date of Evaluation: 09/25/22 Physical Therapist: Joseph Arana, DPT, OCS, CSCS - Visit Plan Frequency: 3x /Week Duration: 4-6 Weeks Plan: 3x/week for 3-6 weeks for : 1. MH, PROM L shoulder, AAROM, grade 1 mobs. 2. strength scap and RC L to tolerance. 3. STM, MH to L shoulder and scap. 4. TENS with Mh as needed for pain at rest(unbilled) - Subjective fell on 09/[address] [place] and stepping up onto sidewalk adn caught toe. Landed on L arm. Now has constant pain l shoulder to elbow and sometimes to wrist. neck is OK. No tingly or numbness. went to ER for X rays and negative.Then sent to family and ortho. Gave vicodin which did not help. Tylenol didn;t help much . Given pendulum ex and trying but will not loosen up. Wakes up painful and sleeps on back, likes to sleep on L side though. retired. spends day doing housework, lives with mom and sister across the street. hard to do anything with L shoulder and arm right now, is right handed. Basic ADLs are getting done mostly with R arm. Hobby: reading bible and can do that. No regualr exercises. No numbness, no spinning. - Pain L shoulder Pain Intensity (Out of 10): 7 Pain Intensity Range: 0, 7 Comment: OK if holds arm down. - Objective Holds L arm protected adn elbow flexion and elevated scapula. Using cane but can walk without it. L shoulder tenderness supraspinatus /biceps area max. + HK, + neer, + ext rotation lag, + drop arm. All L. AROM L shoulder 88 flexion 80 abduction, 18 ext rotation, PSIS IR all painful. PROM 120 flexion and 90 abduction limited with pain, er is 30 painful. strength L shoulder is painful to test 3-/10 flexion, abd, ext rotation, 3+ IR with some pain. Biceps and triceps and wrist are full. Sensation WNL to gross light touch. - Balance/Special Test Scores Functional Gait Assessment Score: 25 % Disability: 16.6700 Quick DASH Score: 56.8175 - Goals Goal 1:: Sleep without waking due to pain Goal Time Frame: 2-4 Weeks Goal 2:: 135 aROM elevation to help with ADLS without pain Goal Time Frame: 4-6 Weeks Goal 3:: I appropr HEP to limit future problems Goal Time Frame: 4-6 Weeks Goal 4:: Patient feel 75% better overall and 1/10 pain at worst Goal Time Frame: 4-6 Weeks Goal 5:: Quick dash score 20 or better Goal Time Frame: 4-6 Weeks - Rehabilitation Potential Rehabilitation Potential: Questionable - Anticipated Interventions Patient/Client Instruction: Educate patient on: Condition, Plan of Care For the Purpose of:: To decrease pain, To decrease swelling/inflammation, To increase ROM, To improve nutrient delivery to tissue, To improve muscle performance and motor function Therapeutic Exercise to Include: Strength training, Flexibilty training, Passive ROM, Active ROM For the Purpose of:: To decrease pain, To decrease swelling/inflammation, To increase ROM, To improve nutrient delivery to tissue, To increase tolerance to activity/condition/position, To improve ability of physical actions for home/community/work/leisure Manual Therapy Techniques to Include: Mobilization, Passive ROM, Soft tissue mobilization For the Purpose of:: To decrease pain, To decrease swelling/inflammation, To increase ROM, To improve nutrient delivery to tissue TENS: Yes Thermo therapy (hot pack): Yes For the Purpose of:: To decrease pain, To increase ROM, To improve nutrient delivery to tissue Thank you for the opportunity to evaluate your patient. For Medicare and Medicare HMO plans, please review the plan of care and approve it. It will need to be FAXED BACK to us at [phone] for Medicare purposes. For Medicare only, by signing this I certify the plan of care. Please let me know if there are questions or concerns regarding this plan of care. Physician Signature: Date:
--- NOTE | 2022-10-20 12:46 | HP.PTDCSUM ---
It has been my pleasure to treat MICHELLE MCGEE referred by Taye Castellanos PA-C, with the diagnosis of L shoulder OA and biceps laceration for a total of 10 visit(s). Discharge Date: 10/20/22 Please see the following information for a summary of their discharge status. Subjective: A little better but not much. Will f/u with doctor Nathaniel. She saw ortho doctor at [facility] who did nothing for her. Will f/u in another 4 weeks. 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 1/10 pain at rest in L shoulder. Lying in bed is still painful and sleep interrupted intermittently. Reaching into cupboard still hurts. I can drive now. Using OTb at home for HEP and still using stick 3x12. L shoulder Pain Intensity (Out of 10): 2 % Improvement: 20 Objective/Function: 110 AROM flexion with scapular compensation, 88 abduction, 40 ext rotation and PSIS IR. all are painful. Er strength 3 with pain, IR 4- with slight pain, flexion adn abduction painful and weak at 3 to 3+. + drop arm L. + ext rotation laag test. Goal 1:: Sleep without waking due to pain Goal Progress: Not Progressing Goal 2:: 135 aROM elevation to help with ADLS without pain Goal 3:: I appropr HEP to limit future problems Goal Progress: Goal Met Goal 4:: Patient feel 75% better overall and 1/10 pain at worst Goal Progress: Not Progressing Goal 5:: Quick dash score 20 or better Goal Progress: Not Progressing Plan: s/s consistent with RC pathology not improving with therapy and pt to schedule back with doctor for next medical step(MRI?) Discharge Comments: Pt to doctor for next medical step If there are questions or concerns regarding this patient's physical therapy, please feel free to call me at [phone]. Thank you for the referral of this patient. Sincerely, Joseph Arana, DPT, OCS, CSCS Balance/Gait/Functional tests - Balance/Special Test Scores Functional Gait Assessment Score: 25 % Disability: 16.6700 Quick DASH Score: 50.0000
== END 2022-10-20 19:00 | disposition home or self-care (01) ==
LOC: PT 12:00
PROVIDERS: PCP Family Medicine; Referring Provider Physician Assistant; Visit Provider Physician Assistant
DX: S46.122D Laceration of muscle, fascia and tendon of long head of biceps, left arm, subsequent encounter (principal); M19.012 Primary osteoarthritis, left shoulder
CPT/HCPCS: 97110; 97161; 97164

== ENCOUNTER → 2022-11-04 | Outpatient (CLI) | payer MEDICARE, MEDICAID, SELFPAY ==
--- NOTE | 2022-11-04 07:28 | MRI_ITS ---
EXAM: MR LEFT UPPER EXTREMITY WITHOUT INTRAVENOUS CONTRAST, SHOULDER CLINICAL INDICATION: L shoulder pain and failed course of therapy- fall TECHNIQUE: Multiplanar and multisequence MR images of the left shoulder without intravenous contrast. COMPARISON: No relevant prior studies available. FINDINGS: TENDONS: SUPRASPINATUS: Full-thickness full width tearing of the supraspinatus tendon with failure at the footprint of the tendon and with retraction to the joint line. INFRASPINATUS: Full-thickness full width tearing of the infraspinatus tendon with failure at the footprint of the tendon and with retraction to the joint line. SUBSCAPULARIS: At least moderate grade partial-thickness tearing middle to deep fibers of the superior subscapularis tendon with associated tearing and retraction of the long head of the bicipital tendon which is not seen within the bicipital groove. 2.3 x 1.2 cm complex ganglion cyst along the myotendinous junction of the subscapularis tendon. TERES MINOR: Unremarkable. Intact. BICEPS BRACHII, LONG HEAD: Tearing and retraction of the long head of the bicipital tendon which is not seen within the bicipital groove LIGAMENTS: GLENOHUMERAL: Irregularity suggesting possible tearing at the axillary pouch or inferior glenohumeral ligament. MUSCLES: At least moderate atrophy of the supraspinatus and infraspinatus muscles. No other definite muscle pathology. FLUID: Unremarkable. No joint effusion. No subacromial-subdeltoid space bursal fluid. CARTILAGE: No focal chondral defects. GLENOID LABRUM: Degenerative tearing of the posterior labrum is suspected. BONES/JOINTS: Degenerative tearing of the posterior labrum. Type I acromion with flat undersurface. Prominent subacromial enthesophyte identified. No os acromiale. Marked superior subluxation of the humeral head due to the presence of full-thickness rotator cuff tears. Moderate to severe hypertrophic degenerative changes of the acromioclavicular joint with moderate mass effect on the underlying soft tissues. No fracture. No abnormal bone marrow signal. OTHER SOFT TISSUES: Unremarkable. No rotator interval edema. MRI/Upper Ext Joint Only(Routine) IMPRESSION: 1. Full-thickness fullwidth tear of the supraspinatus and infraspinatus tendons. This appears to be chronic as there is at least moderate atrophy of the respective muscles. 2. At least moderate grade partial-thickness tearing middle to deep fibers of the superior subscapularis tendon. 3. Torn and retracted long head of the biceps tendon. 4. Degenerative tearing of the posterior labrum. 5. Moderate to severe hypertrophic degenerative changes of the acromioclavicular joint. Electronically Signed: Alex Peralta MD at 21:55 EDT ,
== END | disposition home or self-care (01) ==
LOC: MRI 07:22
PROVIDERS: PCP Family Medicine; Referring Provider Family Medicine; Visit Provider Family Medicine
DX: M75.82 Other shoulder lesions, left shoulder (principal)
CPT/HCPCS: 73221

== ENCOUNTER → 2022-11-20 | Outpatient (CLI) | payer MEDICARE, MEDICAID, SELFPAY ==
[2022-11-20 17:45] LABS: Absolute Neutrophil Count 4.7 X10^3/uL (2.0-7.7); Basophil# 0.03 X10^3/uL; Basophil% 0.4 % (0-1); Eosinophil# 0.11 X10^3/uL; Eosinophils% 1.6 % (0-5); Hemoglobin 13.2 g/dL (12.0-15.0); Lymphocyte % 21.9 % (19-41); Mean Corp Hgb Conc 31.4 g/dL (32-36); Mean Corpuscular Hgb 29.3 pg (27.0-32.0); Mean Corpuscular Volume 93.1 fL (81-99); Mean Platelet Vol. 10.1 fl (6.2-12.0); Monocyte# 0.51 X10^3/uL; Monocyte% 7.4 % (0-10); NRBC Flagged by Analyzer 0 % (0-5); Neutrophil # 4.68 X10^3/uL (2.7-7.7); Neutrophil % 68.4 % (47-70); Platelet Count 254 K/mm3 (150-450); RBC Distribution Width SD 47.5 fl (35.1-43.9); Red Blood Count 4.51 M/mm3 (4.2-5.4); White Blood Count 6.9 K/mm3 (4.4-11.0)
[2022-11-20 18:26] LABS: ALB/GLOB Ratio 0.8 RATIO (0.9-2.4); AST(SGOT) 48 U/L (15-37); Alanine Aminotransfer ALT/SGPT 58 U/L (13-56); Alkaline Phosphatase 62 U/L (45-117); Anion Gap 6 (5-15); BUN 18 mg/dL (7-18); BUN/Creat Ratio 20.4 RATIO (10-20); Calcium,Total 8.5 mg/dL (8.5-10.1); Chloride 109 mmol/L (98-107); Creatinine, Serum 0.88 mg/dL (0.55-1.02); EST Glomerular Filtration Rate 67 mL/min (>60); Est Glom Filt Rate - Afr Amer 81 mL/min (>60); Globulin 3.7 g/dL (2.2-4.2); Glucose 142 mg/dL (74-106); Potassium 4.1 mmol/L (3.5-5.1); Protein, Total 6.7 g/dL (6.4-8.2); Sodium Level 141 mmol/L (136-145); Thyroid Stim Hormone (TSH) 3.57 uIU/mL (0.358-3.74)
== END | disposition home or self-care (01) ==
LOC: MFPLAB 15:40
PROVIDERS: PCP Family Medicine; Visit Provider Family Medicine
DX: R53.83 Other fatigue (principal); E11.69 Type 2 diabetes mellitus with other specified complication
CPT/HCPCS: 36415; 80053; 83036; 84443; 85025

== ENCOUNTER → 2023-02-20 | Outpatient (CLI) | payer MEDICARE, MEDICAID, SELFPAY ==
[2023-02-20 11:40] LABS: Mucous, Urine 0 SEEN /hpf (<or=2+); Red Blood Cells-Urine 0 SEEN /hpf (0-5)
[2023-02-20 15:14] LABS: Color, Urine Yellow (Yellow); Glucose, Dipstick Normal (Normal); Ketone-Dipstick Negative (Negative); Leukocyte Esterase-Dipstick 100 /ul (Negative); Nitrite-Dipstick Negative (Negative); Occult Blood-Urine Negative /ul (Negative); Protein-Dipstick 15 mg/dl (Negative); Specific Gravity, Urine 1.015 (1.002-1.030); Urine Bilirubin Dipstick Negative (Negative); Urine Clarity Cloudy (Clear); Urine Urobilinogen Normal (Normal)
[2023-02-20 15:24] LABS: Amorphous Sediment 2+; Bacteria 1+ /hpf (None Seen); Squamous Epithelial Cells - UA 0-5 SEEN /hpf (5-10); White Blood Cells 10-25 SEEN /hpf (0-5)
[2023-02-20 16:09] LABS: ALB/GLOB Ratio 0.9 RATIO (0.9-2.4); AST(SGOT) 92 U/L (15-37); Alanine Aminotransfer ALT/SGPT 89 U/L (13-56); Albumin, Serum 3.6 g/dL (3.2-5.0); Alkaline Phosphatase 69 U/L (45-117); Anion Gap 5 (5-15); BUN 15 mg/dL (7-18); BUN/Creat Ratio 17.8 RATIO (10-20); Calcium,Total 9.8 mg/dL (8.5-10.1); Chloride 107 mmol/L (98-107); Creatinine, Serum 0.84 mg/dL (0.55-1.02); EST Glomerular Filtration Rate 71 mL/min (>60); Est Glom Filt Rate - Afr Amer 85 mL/min (>60); Glucose 118 mg/dL (74-106); Protein, Total 7.6 g/dL (6.4-8.2); Sodium Level 138 mmol/L (136-145)
[2023-02-20 16:20] LABS: Microalbumin,Random Urine 12.6 mg/L (NO RANGE EST.); Microalbumin:Creatinine Ratio 8.3 mg/g CRE (<30 mg/g CRE)
[2023-02-20 16:27] LABS: Hemoglobin A1c 6.7 % (3.8-5.6)
== END | disposition home or self-care (01) ==
LOC: MFPLAB 11:38
PROVIDERS: PCP Family Medicine; Visit Provider Family Medicine
DX: E11.69 Type 2 diabetes mellitus with other specified complication (principal); I10 Essential (primary) hypertension; E66.9 Obesity, unspecified; R35.81 Nocturnal polyuria
CPT/HCPCS: 36415; 80053; 81001; 82043; 82570; 83036; 87086; 87088; 87186

== ENCOUNTER → 2023-03-30 | Outpatient (CLI) | payer MEDICARE, MEDICAID, SELFPAY ==
--- NOTE | 2023-03-30 12:35 | RAD_ITS ---
STUDY: X-RAY - LUMBAR SPINE REASON FOR EXAM: Female, 72 years old. Spinal stenosis, lumbar region without neurogenic claudication TECHNIQUE: 3 view(s) of the lumbar spine were obtained. COMPARISON: 02/07/2020 FINDINGS: Normal lumbar lordosis. There is no substantial scoliosis. Status post discectomy at L4/L5 and transpedicular fixation from L3 through S1 with anatomic alignment. There is radiolucency surrounding the pedicle screws in L3 which may represent loosening of hardware but no displacement of the screws are seen.. Normal vertebral bodies and endplates. Normal disc space heights. The soft tissue structures are unremarkable. RAD/Lumbar Spine 2 or 3 Views IMPRESSION: Status post transpedicular fixation from L3 through S1 with possible loosening of the pedicle screws of L3 but without displacement. Electronically Signed: Ba Warren MD at 18:38 EDT ,
== END | disposition home or self-care (01) ==
LOC: MTRAD 12:32
PROVIDERS: PCP Family Medicine; Referring Provider Family Medicine; Visit Provider Family Medicine
DX: M48.061 Spinal stenosis, lumbar region without neurogenic claudication (principal)
CPT/HCPCS: 72100

== ENCOUNTER 2023-05-07 10:30 | Outpatient (RCR) | payer MEDICARE, MEDICAID, SELFPAY ==
--- NOTE | 2023-04-03 16:38 | HP.PTEVAL_ITS ---
Patient's Visit Information Visit Information Visit Information: MICHELLE MCGEE is a 72 year old F referred to Physical Therapy by Dr. Joseph Armstrong MD with a diagnosis of LOW BACK PAIN. Date of Evaluation: 04/03/23 Physical Therapist: Brooke Crowell PT, Cert MDT Visit Plan Frequency: 2-3x /Week Duration: 4-6 Weeks Plan: Gait Training with St cane. Neutral Spine Core Stability Exercises and Yasmine LE Hip Flexor, Hamstring and Calf Stretching to help reduce stress to the Lumbar Spine with Daily Activities. Yasmine LE Strengthening. Instruction in Proper Posture Control, Body Mechanics, and Appropriate Activity Modifications. HEP Instruction. Subjective Subjective: Work/Leisure: RETIRED Present symptoms: LOW BACK PAIN, RIGHT HIP PAIN, AND RIGHT THIGH PAIN. RIGHT KNEE PAIN TOO. ACTUALLY BOTH KNEES HURT SOMETIMES BUT THE R IS THE WORST. YASMINE FOOT NUMBNESS THAT PATIENT RELATES TO NEUROPATHY. CHRONIC R THIGH NUMBNESS. SEVERITY OF BACK AND RIGHT HIP/THIGH PAIN IS NEW. Present since: 03/25/23 Pain Scale: WORST 10/10, LEAST 4/10 Currently: 6/10 Is it getting better, worse or staying the same: GETTING BETTER UNTIL ABOUT 2:00 TODAY WHEN GETTING READY TO COME TO PT. STATES SHE HAD A SECOND EPISODE OF GETTING SICK TO HER STOMACH AFTER EATING LUNCH. THIS ALSO HAPPENED ON THURSDAY. SHE THOUGHT SHE WAS GETTING BETTER DUE TO THE MALOXACAM THAT SHE STARTED THURSDAY. NOT SURE WHAT BROUGHT ON THESE TWO EPISODES OF nausea. FELLING BETTER NOW. WILL CALL DR. ARMSTRONG TODAY. Commenced as a result of: NO APPARENT REASON. Symptoms at onset: SEVERE BACK AND RIGHT THIGH PAIN MAKING IT HARD TO MOVE - COULDN'T EVEN GO TO [facility] THURSDAY. SAW DR. ARMSTRONG FOLLOWING THURSDAY. HAD X-RAYS AND STARTED MALOXACAM. PT AND PAIN MGMT ORDERED. Worse: WALKING, TRYING TO MOVE R LEG, TRYING TO GET IN AND OUT OF BED, GETTING IN/OUT OF CAR Better: SITTING, LYING DOWN ON SIDES, MALOXACAM Disturbed sleep: SOMETIMES - I SLEPT PRETTY GOOD LAST NIGHT. Previous history/Previous treatment: MAR [address] SAAVEDRA. NO DASHAWN'S. PHYSICAL THERAPY FOR BACK TOO. NO CHIROPRACTIC. Treatment this episode: 1ST CONSULT WITH PAIN MGMT WAS YESTERDAY AT [facility] AND PT RECOMMENDED FIRST THEN FOLLOW UP APR 21 OR . Coughing/sneezing/straining: NO EFFECT ON BACK PAIN THAT PATIENT IS AWARE OF. Gait: PATIENT REPORTS SHE HAS BEEN USING A CANE FOR A LONG TIME NOW. SHE FELL ON 09/06/22. SHE REPORTS HER HEAD FELT LIKE IT WAS IN A FOG AND SHE TRIPPED ON THE SIDEWALK. SHE HURT HER L ARM AND HAD PHYSICAL THERAPY. SHE REPORTS SHE NEEDS SURGERY ON IT BUT SHE HAS BEEN PUTTING IT OFF. REVERSE TSR RECOMMENDED. PATIENT REPORTS THAT SHE HAS BEEN WALKING THE WAY SHE IS WALKING TODAY FOR A LONG TIME. Bowel or Bladder Dysfunction: PATIENT REPORTS SHE IS INCONTINENT (URINARY) X APPROX ONE YEAR. PATIENT DENIES BOWEL INCONTINENCE. Unexplained weight loss: NO Imaging: LUMBAR X-RAY 03/30/23: IMPRESSION: Status post transpedicular fixation from L3 through S1 with possible loosening of the pedicle screws of L3 but without displacement. PMH/Recent major surgery: OA AND PSORIATIC ARTHRITIS. HTN. NIDDM. NO CANCER. NO CVA. NO HEART ATTACK/STENTS. OTHER: PATIENT REPORTS HER SISTER BROUGHT HER TO PT TODAY. SHE REPORTS SHE DRIVES OFF AND ON DEPENDING ON HOW SHE IS FEELING. SHE REPORTS HER [id number] TAKES HER TO [facility] SOMETIMES TOO OVER THE LAST FEW MONTHS. Objective Objective: Sitting/Standing Posture: POOR. ANTERIOR PELVIC TILT. FORWARD HEAD. ROUNDED SHOULDERS. Active Correction of posture: PATIENT ONLY ABLE TO PARTIALLY CORRECT BUT DENIES INCREASED PAIN WITH ATTEMPTS IN STANDING. Other Observations: THIS PATIENT AMBUALTES INDEP'LY INTO PHYSICAL THERAPY WITH A STRAIGHT CANE AND SLOW ANTALGIC GAIT PATTERN LIMPING ON THE R LE. DECREASED YASMINE STRIDE LENGTH AND IMPROPER USE OF CANE. HER PAIN AND WEAKNESS IS IN THE R LE BUT UNABLE TO USE CANE IN L UE DUE TO L SHLD PAIN. Sensory deficit: DECREASED R ANTERIOR AND LATERAL THIGH, LATERAL LOWER LEG LIGHT TOUCH SENSATION COMPARED TO LEFT. ROM deficit: DECREASED YASMINE HIP ROM ALL PLANES R > L. YASMINE HIP FLEXOR, HS AND GASTROC-SOLEUS COMPLEX TIGHTNESS. Motor deficit: R HIP 3-/5, KNEE 4-/5, ANKLE 4/5. L HIP 4-/5, KNEE 4/5, ANKLE 5/5. Lumbar mvmt loss: flex - JORGE ext - JORGE R SG - JORGE L SG - JORGE PATIENT IS ONLY ABLE TO MOVE HER LUMBAR SPINE THROUGH A SMALL ROM AND ATTEMPS PROVOKE C/O INCREASED CENTRAL AND RIGHT LOW BACK/HIP PAIN/BURNING. PAIN DOESNOT REMAIN WORSE A RESULT. Core strength: POOR Palpation: PATIENT DENIES PAIN WITH PALPATION OF LUMBAR SPINE BUT REPORTS TENDERNESS ALONG R GREATER TROCH REGION. TREATMENT: NEUROMUSCULAR REEDUCATION - RETRAINING OF MVMT AND POSTURE FOR SITTING, LYING AND STANDING ACTIVITIES. GAIT TRAINING WITH STRAIGHT CANE WITH CANE IN R UE DUE TO L SHLD PAIN. INSTRUCTED IN USE OF CANE TO ASSIST DECREASED WEIGHT BEARING ON R LE WHICH IMPROVED GAIT TOLERANCE A LOT. ALSO RECOMMENDED TRIAL OF USE OF WALKER AT HOME IF DOES NOT INCREASE L SHLD PAIN AND GIVES MORE STABILITY AND BACK/RLE PAIN RELIEF. PATIENT IS AGREEABLE AND APPARENTLY HAS WA LKER FROM BACK SURGERY. INSTRUCTED PATIENT TO PERIODICALLY UNLOAD IN LYING AND MINIMIZE BENDING, LIFTING AND TWISTING LIKE SHE DID AFTER BACK SURGERY. PATIENT COMMUNICATED/DEMONSTRATED A GOOD UNDERSTADING OF ALL INSTRUCTIONS AFTER GIVEN. Balance/Special Test Scores Oswestry Low Back Score: 21 Goals Goal 1:: DECREASE C/O BACK AND R LE PAIN BY 50% TO EASE ADL'S. Goal Time Frame: 4-6 Weeks Goal 2:: PATIENT WILL COMPLETE 5 STANDS IN 30 SECS TO DEMONSTRATE IMPROVED FUNCTIONAL STRENGTH Goal Time Frame: 4-6 Weeks Goal 3:: PATIENT WILL COMPLETE TUG IN < 30 SECS WITH STRAIGHT CANE TO DEMONSTRATE IMPROVED GAIT STABILITY Goal Time Frame: 4-6 Weeks Goal 4:: PATIENT WILL BE INDEP WITH [facility] FOR CONTINUED IMPROVEMENT ONCE FORMAL PHYSICAL THERPY CONCLUDES. Goal Time Frame: 4-6 Weeks Rehabilitation Potential Physical Therapy Diagnosis: RIGHT LOW BACK, HIP AND THIGH PAIN. TRUNK AND YASMINE LE WEAKNESS R>L. YASMINE LE STIFFNESS R>L. IMPAIRED GAIT. Anticipated Interventions Patient/Client Instruction: Educate patient on: Condition, Plan of Care and Risk Factors For the Purpose of:: To improve self management Therapeutic Exercise to Include: Strength training, Body mechanics, Postural tra ining, Flexibilty training, Gait and locomotor training, Neuromotor development and Dynamic Lumbar Stabilization For the Purpose of:: To decrease pain, To increase ROM, To improve muscle performance and motor function, To improve performance and independence with ADL's, To improve ability of physical actions for home/community/work/leisure and To improve gait and locomotor functions Text: Thank you for the opportunity to evaluate your patient. For Medicare and Medicare HMO plans, please review the plan of care and approve it. It will need to be FAXED BACK to us at [phone] for Medicare purposes. For Medicare only, by signing this I certify the plan of care. Please let me know if there are questions or concerns regarding this plan of care. Physician Signature: Date:
--- NOTE | 2023-05-07 11:05 | HP.PTDCSUM_ITS ---
Discharge Summary D/C summary: It has been my pleasure to treat IMCHELLE MCGEE referred by Dr. Joseph Armstrong MD, with the diagnosis of LOW BACK PAIN for a total of 9 visit(s). Discharge Date: Please see the following information for a summary of their discharge status. Subjective Subjective: I'M STRONGER AND I DON'T HURT THAT MUCH ANYMORE. I'VE BEEN DOING PRETTY GOOD. I AM VERY PLEASED. THE LAST TIME I WAS HERE MY BACK WASN'T HURTIN AND MY LEGS WASN'T HURTIN. PATIENT ALSO REPORTS SHE DOESN'T NEED HER CANE MUCH BUT SHE KEEPS IT HANDY. PATIENT REPORTS COMPLIANCE WITH HEP AND STATES SHE PLANS TO KEEP UP WITH THEM BECAUSE SHE DOESN'T WANT TO HURT. Pain Right Hip: Pain Intensity (Out of 10): 4 Bilateral Back: Pain Intensity (Out of 10): 1 Overall Improvement % Improvement: 90 Objective Objective/Function: PATIENT WAS SEEN TODAY FOR RE-ASSESSMENT OF PROGRESS TOWARD THE SET PT GOALS AND THE NEED FOR FURTHER PHYSICAL THERAPY VS READINESS FOR DISCHARGE. SHE HAS DONE GREAT WITH PT AND ALL GOALS HAVE BEEN MET. SHE IS APPROPRIATE FOR AND AGREEABLE TO DISCHARGE. UPON EXAM TODAY PATIENT IS WALKING MUCH BETTER. HER CADANCE HAS IMPROVED AND SHE ONLY HAS A VERY MILD LIMP ON THE R LE NOW. SHE IS NOT DEPENDENT ON THE CANE AND DEMO'S NO LOB THROUGHOUT SESSION TODAY. Sensory deficit: DECREASED R DISTAL ANT THIGH COMPARED TO L. ROM deficit: DECREASED YASMINE HIP ROM ALL PLANES R > L. YASMINE HIP FLEXOR, HS AND GASTROC-SOLEUS COMPLEX TIGHTNESS. Motor deficit: R HIP 4-/5, KNEE 4/5, ANKLE 5/5. L HIP 4/5, KNEE 5/5, ANKLE 5/5. Lumbar mvmt loss: flex - NIL ext - JORGE R SG - MOD L SG - MOD PATIENT DENIES PAIN WITH LUMBAR ROM TESTING ALL PLANES TODAY. Palpation: PATIENT DENIES PAIN WITH PALPATION OF LUMBAR SPINE AND YASMINE HIP REGIONS TODAY. TUG TIME: 12.34 WITHOUT AD. STS TEST: 8 WITHOUT UE ASSIST. Goals Goal 1:: DECREASE C/O BACK AND R LE PAIN BY 50% TO EASE ADL'S. Goal Progress: Goal Met Goal 2:: PATIENT WILL COMPLETE 5 STANDS IN 30 SECS TO DEMONSTRATE IMPROVED FUNCTIONAL STRENGTH Goal Progress: Goal Met Goal 3:: PATIENT WILL COMPLETE TUG IN < 30 SECS WITH STRAIGHT CANE TO DEMO NSTRATE IMPROVED GAIT STABILITY Goal Progress: Goal Met Goal 4:: PATIENT WILL BE INDEP WITH HEP FOR CONTINUED IMPROVEMENT ONCE FORMAL PHYSICAL THERPY CONCLUDES. Goal Progress: Goal Met Plan Plan: D/C TO HEP. PATIENT AGREEABLE. D/C Information d/c sentence: If there are questions or concerns regarding this patient's physical therapy, please feel free to call me at [phone]. Thank you for the referral of this patient. Sincerely, Brooke Crowell, PT, Cert MDT Balance/Gait/Functional tests Balance/Special Test Scores Oswestry Low Back Score: 2 Improvement % Improvement: 90
== END 2023-05-07 19:00 | disposition home or self-care (01) ==
LOC: PT 10:30
PROVIDERS: PCP Family Medicine; Referring Provider Family Medicine; Visit Provider Family Medicine
DX: M54.50 Low back pain, unspecified (principal); G89.29 Other chronic pain; Z98.890 Other specified postprocedural states
CPT/HCPCS: 97110; 97112; 97162; 97164

== ENCOUNTER → 2023-05-08 | Outpatient (CLI) | payer MEDICARE, MEDICAID, SELFPAY ==
[2023-05-08 10:47] LABS: ALB/GLOB Ratio 0.8 RATIO (0.9-2.4); AST(SGOT) 38 U/L (15-37); Alanine Aminotransfer ALT/SGPT 39 U/L (13-56); Albumin, Serum 3.4 g/dL (3.2-5.0); Alkaline Phosphatase 61 U/L (45-117); Anion Gap 2 (5-15); BUN 19 mg/dL (7-18); BUN/Creat Ratio 25.4 RATIO (10-20); Calcium,Total 8.5 mg/dL (8.5-10.1); Chloride 107 mmol/L (98-107); Creatinine, Serum 0.75 mg/dL (0.55-1.02); EST Glomerular Filtration Rate 81 mL/min (>60); Est Glom Filt Rate - Afr Amer 98 mL/min (>60); Glucose 113 mg/dL (74-106); Potassium 4.3 mmol/L (3.5-5.1); Protein, Total 7.4 g/dL (6.4-8.2); Sodium Level 137 mmol/L (136-145)
[2023-05-09 09:21] LABS: Hemoglobin A1c 5.7 % (3.8-5.6)
== END | disposition home or self-care (01) ==
LOC: MFPLAB 08:33
PROVIDERS: PCP Family Medicine; Visit Provider Family Medicine
DX: E11.69 Type 2 diabetes mellitus with other specified complication (principal); E66.9 Obesity, unspecified
CPT/HCPCS: 36415; 80053; 83036

== ENCOUNTER → 2023-07-31 | Outpatient (CLI) | payer MEDICARE, MEDICAID, SELFPAY ==
--- OUTSIDE RECORDS SUMMARY | 2023-07-31 12:29 | XMS RPT_ITS | CCD ---
Author Name Unknown Address [address] [place] [address] Organization [facility] Care Team Providers Care Procurement Assistant Name Role Phone RENÉ MCGARRY Unavailable Unavailable KEVIN BARBOZA Unavailable Unavailable Results Test Name Value Interpretation Reference Range Facil ity Encounters Encounter Date Encounter Type Care Provider Facility Start: 02-10-2018 End: 02-10-2018 Patient encounter RENÉ ZEFERINO [facility] Summary Purpose Family History No Family History Records Found Advance Directives No Advanced Directives Records Found Additional Source Comments INFORMATION SOURCE (unrecogn ized section and content) FOR RECORDS PERTAINING TO PATIENTS WHO ARE OR HAVE BEEN ENROLLED IN A CHEMICAL DEPENDENCY/SUBSTANCEABUSE PROGRAM, SOME INFORMATION MAY BE OMITTED. This clinical summary was aggregated from multiple sources. Caution should be exercised in using it in the provision of clinical care. This summary normalizes information from multiple sources, and as a consequence, information in this document may materially change the coding, format and clinical context of patient data. In addition, data may be omitted in some cases. CLINICAL DECISIONS SHOULD BE BASED ON THE PRIMARY CLINICAL RECORDS. [employer] [facility]. provides no warranty or guarantee of the accuracy or completeness of information in this document.
[2023-07-31 15:44] LABS: Absolute Lymphocyte Count 1.42 X10^3/uL (0.83-4.51); Basophil# 0.03 X10^3/uL; Basophil% 0.4 % (0-1); Eosinophil# 0.17 X10^3/uL; Eosinophils% 2.3 % (0-5); Hematocrit 38.9 % (37-47); Lymphocyte # 1.42 X10^3/ul (0.83-4.51); Lymphocyte % 19.5 % (19-41); Mean Corp Hgb Conc 30.8 g/dL (32-36); Mean Corpuscular Hgb 27.8 pg (27.0-32.0); Mean Platelet Vol. 9.5 fl (6.2-12.0); Monocyte# 0.61 X10^3/uL; Monocyte% 8.4 % (0-10); NRBC Flagged by Analyzer 0 % (0-5); Neutrophil # 5.03 X10^3/uL (2.7-7.7); Neutrophil % 69.1 % (47-70); Platelet Count 423 K/mm3 (150-450); RBC Distribution Width CV 13.5 % (11.6-14.6); RBC Distribution Width SD 44.2 fl (35.1-43.9); Red Blood Count 4.32 M/mm3 (4.2-5.4); White Blood Count 7.3 K/mm3 (4.4-11.0)
[2023-07-31 16:05] LABS: Hemoglobin A1c 5.9 % (3.8-5.6)
[2023-07-31 16:06] LABS: ALB/GLOB Ratio 0.7 RATIO (0.9-2.4); AST(SGOT) 20 U/L (15-37); Alanine Aminotransfer ALT/SGPT 23 U/L (13-56); Albumin, Serum 3.1 g/dL (3.2-5.0); Alkaline Phosphatase 68 U/L (45-117); Anion Gap 4 (5-15); BUN 15 mg/dL (7-18); BUN/Creat Ratio 20.8 RATIO (10-20); Calcium,Total 9.2 mg/dL (8.5-10.1); Chloride 107 mmol/L (98-107); Creatinine, Serum 0.72 mg/dL (0.55-1.02); EST Glomerular Filtration Rate 85 mL/min (>60); Est Glom Filt Rate - Afr Amer 102 mL/min (>60); Globulin 4.6 g/dL (2.2-4.2); Glucose 87 mg/dL (74-106); Potassium 4.1 mmol/L (3.5-5.1); Protein, Total 7.7 g/dL (6.4-8.2); Sodium Level 138 mmol/L (136-145)
== END | disposition home or self-care (01) ==
LOC: MFPLAB 12:08
PROVIDERS: PCP Family Medicine; Visit Provider Family Medicine
DX: E11.69 Type 2 diabetes mellitus with other specified complication (principal); M48.061 Spinal stenosis, lumbar region without neurogenic claudication
CPT/HCPCS: 36415; 80053; 83036; 85025

== ENCOUNTER → 2023-08-04 | Outpatient (CLI) | payer MEDICARE, MEDICAID, SELFPAY ==
--- OUTSIDE RECORDS SUMMARY | 2023-08-04 11:18 | XMS RPT_ITS | CCD ---
Author Name Unknown Address [address] [place] [address] Organization [facility] Care Team Providers Care Enterprise Application Developer Name Role Phone RENÉ MCGARRY Unavailable Unavailable KEVIN BARBOZA Unavailable Unavailable Results Test Name Value Interpretation Reference Range Facil ity Encounters Encounter Date Encounter Type Care Provider Facility Start: 02-10-2018 End: 02-10-2018 Patient encounter RENÉ ZEFERINO [facility] Summary Purpose Family History No Family History [...] BE BASED ON THE PRIMARY CLINICAL RECORDS. [employer] [facility]. provides no warranty or guarantee of the accuracy or completeness of information in this document.
[2023-08-04 13:00] LABS: Vitamin B12 238 pg/mL (211-911); Vitamin D,25 Hydroxy 46.8 ng/mL
[2023-08-04 13:26] LABS: T4 Free Direct 1.17 ng/dL (0.76-1.46); Thyroid Stim Hormone (TSH) 2.13 uIU/mL (0.358-3.74)
== END | disposition home or self-care (01) ==
LOC: MFPLAB 10:48
PROVIDERS: PCP Family Medicine; Visit Provider Family Medicine
DX: M25.50 Pain in unspecified joint (principal); F32.1 Major depressive disorder, single episode, moderate; E55.9 Vitamin D deficiency, unspecified
CPT/HCPCS: 36415; 82306; 82607; 82746; 84439; 84443

== ENCOUNTER 2023-10-06 10:00 | Outpatient (RCR) | payer OTHER, MEDICARE, MEDICAID, SELFPAY ==
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
== END 2023-10-06 19:00 | disposition home or self-care (01) ==
LOC: OT 10:00
PROVIDERS: PCP Family Medicine; Referring Provider Family Medicine; Visit Provider Family Medicine
DX: S22.21XD Fracture of manubrium, subsequent encounter for fracture with routine healing (principal); S22.41XD Multiple fractures of ribs, right side, subsequent encounter for fracture with routine healing
CPT/HCPCS: 97110; 97140; 97161; 97164; 97166; 97530

== ENCOUNTER → 2023-12-14 | Outpatient (CLI) | payer MEDICARE, MEDICAID, SELFPAY ==
[2023-12-14 10:31] LABS: Absolute Lymphocyte Count 1.46 X10^3/uL (0.83-4.51); Absolute Neutrophil Count 2.8 X10^3/uL (2.0-7.7); Basophil# 0.03 X10^3/uL; Basophil% 0.6 % (0-1); Eosinophil# 0.21 X10^3/uL; Eosinophils% 4.2 % (0-5); Hematocrit 40.5 % (37-47); Hemoglobin 12.6 g/dL (12.0-15.0); Lymphocyte # 1.46 X10^3/ul (0.83-4.51); Lymphocyte % 29.3 % (19-41); Mean Corp Hgb Conc 31.1 g/dL (32-36); Mean Corpuscular Hgb 28.1 pg (27.0-32.0); Mean Corpuscular Volume 90.4 fL (81-99); Mean Platelet Vol. 10.1 fl (6.2-12.0); Monocyte# 0.49 X10^3/uL; Monocyte% 9.8 % (0-10); NRBC Flagged by Analyzer 0 % (0-5); Neutrophil # 2.78 X10^3/uL (2.7-7.7); Neutrophil % 55.9 % (47-70); Platelet Count 276 K/mm3 (150-450); RBC Distribution Width CV 14.2 % (11.6-14.6); RBC Distribution Width SD 46.9 fl (35.1-43.9); Red Blood Count 4.48 M/mm3 (4.2-5.4)
[2023-12-14 11:17] LABS: ALB/GLOB Ratio 0.9 RATIO (0.9-2.4); AST(SGOT) 24 U/L (15-37); Alanine Aminotransfer ALT/SGPT 25 U/L (13-56); Albumin, Serum 3.4 g/dL (3.2-5.0); Alkaline Phosphatase 81 U/L (45-117); Anion Gap 7 (5-15); BUN 19 mg/dL (7-18); BUN/Creat Ratio 26.9 RATIO (10-20); Calcium,Total 8.9 mg/dL (8.5-10.1); Chloride 105 mmol/L (98-107); Creatinine, Serum 0.71 mg/dL (0.55-1.02); EST Glomerular Filtration Rate 87 mL/min (>60); Est Glom Filt Rate - Afr Amer 105 mL/min (>60); Globulin 3.7 g/dL (2.2-4.2); Glucose 121 mg/dL (74-106); Potassium 4.1 mmol/L (3.5-5.1); Protein, Total 7.1 g/dL (6.4-8.2); Sodium Level 137 mmol/L (136-145)
[2023-12-14 18:22] LABS: Hemoglobin A1c 5.8 % (3.8-5.6)
== END | disposition home or self-care (01) ==
LOC: MFPLAB 09:10
PROVIDERS: PCP Family Medicine; Visit Provider Family Medicine
DX: E11.39 Type 2 diabetes mellitus with other diabetic ophthalmic complication (principal); E11.69 Type 2 diabetes mellitus with other specified complication; M79.7 Fibromyalgia
CPT/HCPCS: 36415; 80053; 83036; 85025

== ENCOUNTER → 2024-06-24 | Outpatient (CLI) | payer MEDICARE, MEDICAID, SELFPAY ==
[2024-06-24 18:31] LABS: ALB/GLOB Ratio 0.9 RATIO (0.9-2.4); AST(SGOT) 28 U/L (15-37); Alanine Aminotransfer ALT/SGPT 30 U/L (13-56); Albumin, Serum 3.7 g/dL (3.2-5.0); Alkaline Phosphatase 75 U/L (45-117); Anion Gap 9 (5-15); BUN 13 mg/dL (7-18); BUN/Creat Ratio 15.8 RATIO (10-20); Calcium,Total 9.6 mg/dL (8.5-10.1); Chloride 105 mmol/L (98-107); Cholesterol 195 mg/dL (200); Creatinine, Serum 0.82 mg/dL (0.55-1.02); EST Glomerular Filtration Rate 73 mL/min (>60); Est Glom Filt Rate - Afr Amer 88 mL/min (>60); Globulin 4.3 g/dL (2.2-4.2); Glucose 75 mg/dL (74-106); High Density Lipoprotein 85 mg/dL; Potassium 4.2 mmol/L (3.5-5.1); Sodium Level 138 mmol/L (136-145)
[2024-06-24 18:37] LABS: Microalbumin,Random Urine 5.6 mg/L (NO RANGE EST.); Microalbumin:Creatinine Ratio 3.9 mg/g CRE (<30 mg/g CRE)
[2024-06-27 13:07] LABS: Vitamin B12 318 pg/mL (211-911); Vitamin D,25 Hydroxy 41.1 ng/mL
== END | disposition home or self-care (01) ==
LOC: MFPLAB 11:37
PROVIDERS: PCP Family Medicine; Referring Provider Family Medicine; Visit Provider Family Medicine
DX: E11.69 Type 2 diabetes mellitus with other specified complication (principal); E53.8 Deficiency of other specified B group vitamins; E55.9 Vitamin D deficiency, unspecified; I10 Essential (primary) hypertension
CPT/HCPCS: 36415; 80053; 82043; 82306; 82465; 82570; 82607; 83718; 84443

== ENCOUNTER → 2024-06-27 | Outpatient (CLI) | payer MEDICARE, MEDICAID, SELFPAY ==
--- NOTE | 2024-06-27 13:22 | BI_ITS ---
MAMMOGRAPHY - BILATERAL SCREENING REASON FOR EXAM: Female, 73 years old. Routine annual screening examination. PERTINENT HISTORY: Non-contributory. TECHNIQUE: Digital bilateral breast sakshi (3D mammographic acquisition) in the CC and MLO projections. 2-D mediolateral oblique (MLO) and craniocaudad (CC) views of both breasts were obtained. CAD: Full Field Digital Mammography with Computer Added Detection was performed. COMPARISON: Comparison is made with prior study February 17, 2022 and February 12, 2021. FINDINGS: Breast Composition: There are scattered areas of fibroglandular density. There are no dominant masses or suspicious calcifications. Stable small calcified nodules in the retroareolar region of the right breast. No other significant abnormalities are identified. There has been no significant change since the prior study. BI/SCRN MAMM (CAD)W/SAKSHI BILAT IMPRESSION: Stable bilateral screening mammogram. Yearly follow-up mammogram recommended. (A) ASSESSMENT CATEGORY: BIRADS Category 2: Benign. A letter regarding these results will be sent to the patient by the facility within 30 days. Approximately 10% of breast cancers are not detected by mammography. A normal mammogram should not delay biopsy of a clinically suspicious abnormality. [id number] Electronically Signed: Anoop Samayoa MD at 14:06 EST ,
== END | disposition home or self-care (01) ==
LOC: OPBI 13:20
PROVIDERS: PCP Family Medicine; Referring Provider Family Medicine; Visit Provider Family Medicine
DX: Z12.31 Encounter for screening mammogram for malignant neoplasm of breast (principal)
CPT/HCPCS: 77063; 77067

== ENCOUNTER → 2024-08-02 | Outpatient (CLI) | payer MEDICARE, MEDICAID, SELFPAY ==
--- NOTE | 2024-08-02 14:06 | BD_ITS ---
PROCEDURE: DEXA BONE DENSITY STUDY REASON FOR EXAM: F, age 73 y/o . Postmenopausal. TECHNIQUE: DEXA scan of the lumbar spine and both hips. COMPARISON: Comparison is made with prior study dated February 12, 2021. FINDINGS: Lumbar Spine (L1-L4): g/cm2 (1.051)/T-score (0.7)/Z-score (2.8) findings are suggestive of normal with a low fracture risk. Left Femur Total: g/cm2 (0.998)/T-score (0.5)/Z-score (2.1) Left Femoral Neck: g/cm2 (0.841)/T-score (-0.1)/Z-score (1.9) Right Femur Total: g/cm2 (1.007)/T-score (0.5)/Z-score (2.2) Right Femoral Neck: g/cm2 (0.869)/T-score (0.2)/Z-score (2 points) The T-Scores on the most recent prior examination were: Lumbar Spine (L1-L4): There has been improvement of bone density since the previous examination. Left Femur Total: Improvement of 1.3%. Right Femur Total: Loss of 2.1%. BD/Dexa Bone Density Study IMPRESSION: The patient is considered normal as outlined below according to [employer] anization (WHO) criteria with a low fracture risk. There has been improvement of bone density since the previous examination. Reading Location: [facility]
== END | disposition home or self-care (01) ==
PROVIDERS: PCP Family Medicine; Referring Provider Family Medicine; Visit Provider Family Medicine
DX: N95.9 Unspecified menopausal and perimenopausal disorder (principal)
CPT/HCPCS: 77080

== ENCOUNTER → 2024-12-23 | Outpatient (CLI) | payer MEDICARE, MEDICAID, SELFPAY ==
[2024-12-23 15:51] LABS: Creatinine, Urine (random) 113.00 mg/dL (28.00-217.00); Microalbumin,Random Urine 18.9 mg/L (<20 mg/L)
[2024-12-23 18:09] LABS: AST(SGOT) 36 U/L (<=31); Alanine Aminotransfer ALT/SGPT 29 U/L (<=34); Albumin, Serum 4.0 g/dL (3.4-4.8); Alkaline Phosphatase 74 U/L (35-104); Anion Gap 11 (5-15); BUN 11 mg/dL (4-19); BUN/Creat Ratio 13.4 RATIO (10-20); Calcium,Total 9.4 mg/dL (7.6-11.0); Carbon Dioxide 25.2 mmol/L (21.0-32.0); Chloride 103 mmol/L (98-108); Cholesterol 204 mg/dL (<=200); Globulin 3.1 g/dL (2.2-4.2); Glucose 96 mg/dL (70-99); Potassium 4.1 mmol/L (3.3-5.1)
== END | disposition home or self-care (01) ==
LOC: MTLAB 13:54
PROVIDERS: PCP Family Medicine; Referring Provider Family Medicine; Visit Provider Family Medicine
DX: R73.03 Prediabetes (principal)
CPT/HCPCS: 36415; 80053; 82043; 82465; 82570; 83718